=== PATIENT | female | born 1950 | race African-American/Black ===

== ENCOUNTER 2017-05-25 04:37 | Observation (INO) ==
[2017-05-25] MEDS ORDERED: SODIUM CHLORIDE 0.9% 1,000 ML IV STA (06:14)
[2017-05-25 06:42] LABS: Basophils % 0.6 % (0.0-0.8); Eosinophils # 0.1 10*3/uL (0.0-0.87); Eosinophils % 1.2 % (0.00-10.9); Hematocrit 32.1 VOL% (35.7-47.0); Hemoglobin 10.2 GM/DL (12.0-16.0); Immature Granulocytes % 0.3 %; Immature Granulocytes Absolute 0.02 #; Lymphocytes # 0.8 10*3/uL (1.4-4.0); Lymphocytes % 11.1 % (21.3-54.2); Mean Corpuscular HGB Conc 31.8 GM/DL (32-36); Mean Corpuscular Hemoglobin 26 PG (27-34); Mean Corpuscular Volume 83.2 FL (87-102); Mean Platelet Volume 9.9 FL (9.6-12.0); Monocytes # 0.5 10*3/uL (0.11-0.8); Monocytes % 7.7 % (1.7-12.7); Neutrophils # 5.3 10*3/uL (1.4-7.4); Neutrophils % 79.1 % (38.7-73.9); Platelet Count 255 T/CUMM (130-400); Red Blood Count 3.86 MC/CUMM (3.8-5.5); Red Cell Distribution Width 14.4 % (9.3-17.3); White Blood Count 6.8 T/CUMM (4-12)
[2017-05-25 07:05] LABS: Blood Urea Nitrogen 50 MG/DL (7-18); Calcium 9.8 MG/DL (8.5-10.1); Glucose 118 MG/DL (74-106); Osmolality,Calculated 286.8 MOS/KG (273-304); Potassium 4.7 MMOL/L (3.5-5.1); Sodium 137 MMOL/L (136-145); Troponin I Only < 0.015 NG/ML (0.00-0.045)
[2017-05-25] MEDS ORDERED: ENOXAPARIN 100 MG/ML SYRINGE SUBCUT SCH ×2 (08:30)
[2017-05-25] MEDS ORDERED: ENOXAPARIN 100 MG/ML SYRINGE SUBCUT ONE (08:39)
[2017-05-25 08:56] LABS: INR 0.9; PT Patient Result 9.9 SECS; Partial Thromboplastin Time 26.4 SECS (0-40)
[2017-05-25] MEDS ORDERED: cloNIDine 0.1 MG TABLET PO PRN (13:08)
[2017-05-25] MEDS ORDERED: amLODIPine 5 MG TABLET PO ONE (13:08)
[2017-05-26 07:48] VITALS: BP 154/67
== END 2017-05-26 11:18 | disposition home or self-care (01) ==
LOC: N.ED 04:37 → N.EDINP 04:37 → N.TELES 09:45
PROVIDERS: ADMIT Internal Medicine Interventional Cardiology; ATTEND Internal Medicine Interventional Cardiology

== ENCOUNTER 2017-12-11 22:07 | Observation (INO) ==
[2017-12-11] MEDS ORDERED: ASPIRIN 325 MG TABLET PO STA (23:38)
[2017-12-11] MEDS ORDERED: PANTOPRAZOLE 40 MG TABLET PO STA (23:38)
[2017-12-11] MEDS ORDERED: NITROGLYCERIN SL 0.4 MG TABLET SL STA (23:39)
[2017-12-11 23:44] LABS: Basophils # 0.1 10*3/uL (0.0-0.2); Basophils % 0.5 % (0.0-0.8); Eosinophils # 0.1 10*3/uL (0.0-0.87); Eosinophils % 1.1 % (0.00-10.9); Hematocrit 30.7 VOL% (35.7-47.0); Hemoglobin 9.5 GM/DL (12.0-16.0); Immature Granulocytes % 0.4 %; Immature Granulocytes Absolute 0.04 #; Lymphocytes % 10.1 % (21.3-54.2); Mean Corpuscular HGB Conc 30.9 GM/DL (32-36); Mean Corpuscular Hemoglobin 26 PG (27-34); Mean Corpuscular Volume 82.5 FL (87-102); Mean Platelet Volume 10.1 FL (9.6-12.0); Monocytes # 0.6 10*3/uL (0.11-0.8); Monocytes % 6.2 % (1.7-12.7); Neutrophils # 7.7 10*3/uL (1.4-7.4); Neutrophils % 81.7 % (38.7-73.9); Platelet Count 259 T/CUMM (130-400); Red Blood Count 3.72 MC/CUMM (3.8-5.5); White Blood Count 9.5 T/CUMM (4-12)
[2017-12-11 23:49] LABS: INR 0.9; PT Patient Result 9.4 SECS; Partial Thromboplastin Time 25.9 SECS (0-40)
[2017-12-11 23:57] LABS: Alanine Aminotransferase 19 U/L (13-56); Albumin 3.5 G/DL (3.4-5.0); Alkaline Phosphatase 123 U/L (45-117); Aspartate Amino Transferase 26 U/L (0-37); Bilirubin,Total < 0.39 MG/DL (0.2-1.0); Blood Urea Nitrogen 58 MG/DL (7-18); Calcium 9.4 MG/DL (8.5-10.1); Glucose 147 MG/DL (74-106); Osmolality,Calculated 293.7 MOS/KG (273-304); Potassium 5.2 MMOL/L (3.5-5.1); Sodium 138 MMOL/L (136-145); Total Protein 8.1 G/DL (6.4-8.3)
[2017-12-11 23:59] LABS: Amylase 101 U/L (25-115); Troponin I < 0.015 NG/ML (0.00-0.045)
[2017-12-12] MEDS ORDERED: ONDANSETRON 4 MG/2 ML VIAL IV PRN (02:11)
[2017-12-12] MEDS ORDERED: ACETAMINOPHEN 325 MG TABLET PO PRN (02:11)
[2017-12-12] MEDS ORDERED: NITROGLYCERIN SL 0.4 MG TABLET SL PRN (02:13)
[2017-12-12] MEDS ORDERED: GLUCAGON 1 MG VIAL IM PRN (02:14)
[2017-12-12] MEDS ORDERED: DEXTROSE 50% 25 GM/50 ML VIAL IV PRN (02:14)
[2017-12-12] MEDS ORDERED: MORPHINE 4 MG/1 ML VIAL IV PRN (02:16)
[2017-12-12 03:53] LABS: Calcium 9.2 MG/DL (8.5-10.1); Osmolality,Calculated 291.8 MOS/KG (273-304); Potassium 4.8 MMOL/L (3.5-5.1)
[2017-12-12] MEDS: SODIUM CHLORIDE 0.9% 1,000 ML IV SCH ×2 (03:56→23:31)
[2017-12-12 05:49] LABS: Basophils % 0.6 % (0.0-0.8); Eosinophils # 0.1 10*3/uL (0.0-0.87); Eosinophils % 0.7 % (0.00-10.9); Immature Granulocytes % 0.3 %; Immature Granulocytes Absolute 0.02 #; Lymphocytes % 13.5 % (21.3-54.2); Mean Corpuscular Hemoglobin 26 PG (27-34); Mean Corpuscular Volume 82.9 FL (87-102); Mean Platelet Volume 9.5 FL (9.6-12.0); Monocytes # 0.6 10*3/uL (0.11-0.8); Monocytes % 8.3 % (1.7-12.7); Neutrophils # 5.4 10*3/uL (1.4-7.4); Neutrophils % 76.6 % (38.7-73.9); Platelet Count 233 T/CUMM (130-400); White Blood Count 7.1 T/CUMM (4-12)
[2017-12-12 08:57] LABS: Troponin I < 0.015 NG/ML (0.00-0.045)
[2017-12-12] MEDS ORDERED: TRIAMTERENE/HCTZ 37.5-25 MG TABLET PO SCH (09:00)
[2017-12-12] MEDS ORDERED: METOPROLOL SUCCINATE XL 100 MG TABLET PO SCH (09:00)
[2017-12-12] MEDS ORDERED: NEBIVOLOL 10 MG TABLET PO SCH (09:00)
[2017-12-12] MEDS: INSULIN NPH 100 UNIT/ML SUBCUT SCH (09:21)
[2017-12-12] MEDS: GLIMEPIRIDE 4 MG TABLET PO SCH ×2 (09:21→20:45)
[2017-12-12] MEDS ORDERED: SIMETHICONE CHEW 80 MG TABLET PO PRN (09:21)
[2017-12-12] MEDS: INSULIN REGULAR 100 UNIT/ML SUBCUT SCH ×4 (09:21→20:47)
[2017-12-12] MEDS: CLOPIDOGREL 75 MG TABLET PO SCH (09:37)
[2017-12-12] MEDS: amLODIPine 10 MG TABLET PO SCH (09:37)
[2017-12-12] MEDS: PANTOPRAZOLE 40 MG TABLET PO SCH (09:37)
[2017-12-12] MEDS: TRIAMTERENE/HCTZ 37.5-25 MG CAPSULE PO SCH (09:37)
[2017-12-12] MEDS: NEBIVOLOL 10 MG TABLET PO SCH ×2 (09:38→20:45)
[2017-12-12] MEDS: ASPIRIN CHEW 81 MG TABLET PO SCH (09:38)
[2017-12-12] MEDS: ENOXAPARIN 30 MG/0.3 ML SYRINGE SUBCUT SCH (10:38)
[2017-12-12 12:10] LABS: Troponin I < 0.015 NG/ML (0.00-0.045)
[2017-12-12] MEDS: DOXAZOSIN 1 MG TABLET PO SCH (20:45)
[2017-12-12] MEDS ORDERED: ATORVASTATIN 40 MG TABLET PO SCH (21:00)
[2017-12-12] MEDS ORDERED: INSULIN NPH 100 UNIT/ML SUBCUT SCH (21:00)
[2017-12-13 02:37] LABS: Basophils % 0.9 % (0.0-0.8); Eosinophils # 0.1 10*3/uL (0.0-0.87); Eosinophils % 2.2 % (0.00-10.9); Hematocrit 27.2 VOL% (35.7-47.0); Hemoglobin 8.4 GM/DL (12.0-16.0); Immature Granulocytes % 0.2 %; Immature Granulocytes Absolute 0.01 #; Lymphocytes # 1.2 10*3/uL (1.4-4.0); Lymphocytes % 24.8 % (21.3-54.2); Mean Corpuscular HGB Conc 30.9 GM/DL (32-36); Mean Corpuscular Hemoglobin 26 PG (27-34); Mean Corpuscular Volume 83.2 FL (87-102); Mean Platelet Volume 9.8 FL (9.6-12.0); Monocytes # 0.6 10*3/uL (0.11-0.8); Monocytes % 12.1 % (1.7-12.7); Neutrophils # 2.8 10*3/uL (1.4-7.4); Neutrophils % 59.8 % (38.7-73.9); Platelet Count 219 T/CUMM (130-400); Red Blood Count 3.27 MC/CUMM (3.8-5.5); Red Cell Distribution Width 14.8 % (9.3-17.3); White Blood Count 4.6 T/CUMM (4-12)
[2017-12-13 02:40] LABS: Basophils % 0.9 % (0.0-0.8); Eosinophils # 0.1 10*3/uL (0.0-0.87); Eosinophils % 2.2 % (0.00-10.9); Hematocrit 27.3 VOL% (35.7-47.0); Hemoglobin 8.4 GM/DL (12.0-16.0); Immature Granulocytes % 0.2 %; Immature Granulocytes Absolute 0.01 #; Lymphocytes # 1.1 10*3/uL (1.4-4.0); Mean Corpuscular HGB Conc 30.8 GM/DL (32-36); Mean Corpuscular Hemoglobin 26 PG (27-34); Mean Corpuscular Volume 83.2 FL (87-102); Mean Platelet Volume 9.7 FL (9.6-12.0); Monocytes # 0.5 10*3/uL (0.11-0.8); Monocytes % 11.9 % (1.7-12.7); Neutrophils # 2.7 10*3/uL (1.4-7.4); Neutrophils % 59.8 % (38.7-73.9); Platelet Count 229 T/CUMM (130-400); Red Blood Count 3.28 MC/CUMM (3.8-5.5); Red Cell Distribution Width 14.9 % (9.3-17.3); White Blood Count 4.5 T/CUMM (4-12)
[2017-12-13 03:17] LABS: % Iron Saturation 16.4 % (18-50); Ferritin 31.7 ng/ml (8-252)
[2017-12-13 03:25] LABS: Calcium 9.2 MG/DL (8.5-10.1); Osmolality,Calculated 292.4 MOS/KG (273-304); Potassium 4.4 MMOL/L (3.5-5.1)
[2017-12-13 03:28] LABS: Folate 9.9 NG/ML (5.4-24.0); Risk Ratio 2.85; VLDL CHOLESTEROL 27.8 MG/DL; Vitamin B12 463 PG/ML (211-911)
[2017-12-13 08:01] LABS: Sedimentation Rate-Westergren 60 MM/HR (0-30)
[2017-12-13 08:07] VITALS: BP 152/73
[2017-12-13 08:52] LABS: Hemoglobin A1 (Alkaline) 97.5 % (96.5-98.5); Hemoglobin A2 (Alkaline) 2.5 % (1.5-3.5)
[2017-12-13] MEDS: INSULIN REGULAR 100 UNIT/ML SUBCUT SCH (09:20)
[2017-12-13] MEDS: INSULIN NPH 100 UNIT/ML SUBCUT SCH (09:44)
[2017-12-13] MEDS: NEBIVOLOL 10 MG TABLET PO SCH (09:44)
[2017-12-13] MEDS: PANTOPRAZOLE 40 MG TABLET PO SCH (09:45)
[2017-12-13] MEDS: TRIAMTERENE/HCTZ 37.5-25 MG CAPSULE PO SCH (09:45)
[2017-12-13] MEDS: ENOXAPARIN 30 MG/0.3 ML SYRINGE SUBCUT SCH (09:45)
[2017-12-13] MEDS: ASPIRIN CHEW 81 MG TABLET PO SCH (09:45)
[2017-12-13] MEDS: GLIMEPIRIDE 4 MG TABLET PO SCH (09:45)
[2017-12-13] MEDS: amLODIPine 10 MG TABLET PO SCH (09:45)
[2017-12-13] MEDS: CLOPIDOGREL 75 MG TABLET PO SCH (09:45)
[2017-12-13] MEDS: DOXAZOSIN 1 MG TABLET PO SCH (09:49)
[2017-12-13 11:56] LABS: Apearance,Urine CLEAR (Clear); Bilirubin,Urine Negative (Negative); Blood, Urine Negative (Negative); Glucose,Urine (UA) Negative (Negative); Ketones,Urine Negative (Negative); Nitrite,Urine Negative (Negative); Protein,Urine 100 MG/DL; RBC,Urine 3 /HPF (0-4); Squamous Epithelial Cell,Urine Occasional /HPF (0-10); Urine Color Straw (Yellow); Urine Urobilinogen < 2.0 EU/DL (0.2-1.0); WBC,Urine <1 /HPF (0-6)
[2017-12-14] MEDS ORDERED: cloNIDine 0.2 MG/24 HR PATCH TRANSDERM SCH (09:00)
== END 2017-12-13 11:40 | disposition home or self-care (01) ==
LOC: N.ED 22:07 → N.EDINP 12-12 02:11 → INTOOBSV 12-12 02:11 → N.TELEN 12-12 02:27
PROVIDERS: ADMIT Hospitalist; ATTEND Hospitalist

== ENCOUNTER 2019-02-14 15:27 | Observation (INO) ==
[2019-02-14] MEDS ORDERED: NITROGLYCERIN SL 0.4 MG TABLET SL PRN (16:03)
[2019-02-14 16:33] LABS: Basophils # 0.1 10*3/uL (0.0-0.2); Basophils % 0.7 % (0.0-0.8); Eosinophils % 0.5 % (0.00-10.9); Hematocrit 26.1 VOL% (35.7-47.0); Immature Granulocytes % 0.4 %; Immature Granulocytes Absolute 0.03 #; Lymphocytes # 0.7 10*3/uL (1.4-4.0); Lymphocytes % 8.6 % (21.3-54.2); Mean Corpuscular HGB Conc 30.7 GM/DL (32-36); Mean Corpuscular Volume 81.6 FL (87-102); Monocytes % 9.4 % (1.7-12.7); Neutrophils % 80.4 % (38.7-73.9); Platelet Count 281 T/CUMM (130-400); White Blood Count 8.3 T/CUMM (4-12)
[2019-02-14 16:44] LABS: INR 0.9; PT Patient Result 9.5 SECS (9.6-12.2)
[2019-02-14 17:01] LABS: Calcium 8.9 MG/DL (8.5-10.1); Osmolality,Calculated 293.7 MOS/KG (273-304)
[2019-02-14] MEDS ORDERED: DEXTROSE 50% 25 GM/50 ML VIAL IV PRN ×2 (18:35)
[2019-02-14] MEDS ORDERED: ACETAMINOPHEN 325 MG TABLET PO PRN (18:35)
[2019-02-14] MEDS ORDERED: GLUCAGON 1 MG VIAL IM PRN (18:35)
[2019-02-14] MEDS ORDERED: ONDANSETRON 4 MG/2 ML VIAL IV PRN (18:35)
[2019-02-14] MEDS ORDERED: SIMETHICONE CHEW 80 MG TABLET PO PRN (18:45)
[2019-02-14] MEDS ORDERED: traZODone 50 MG TABLET PO PRN (18:45)
[2019-02-14] MEDS ORDERED: traMADol 50 MG TABLET PO PRN (18:45)
[2019-02-14] MEDS ORDERED: cloNIDine 0.2 MG/24 HR PATCH TRANSDERM SCH (19:00)
[2019-02-14] MEDS ORDERED: ENOXAPARIN 120 MG/0.8 ML SYRINGE SUBCUT SCH (19:00)
[2019-02-14] MEDS ORDERED: ATORVASTATIN 40 MG TABLET PO SCH (21:00)
[2019-02-14] MEDS: SODIUM CHLORIDE 0.9% 1,000 ML IV SCH (22:33)
[2019-02-14] MEDS: NEBIVOLOL 10 MG TABLET PO SCH (22:35)
[2019-02-14] MEDS: DOXAZOSIN 1 MG TABLET PO SCH (22:35)
[2019-02-14] MEDS: INSULIN LISPRO 100 UNIT/ML SUBCUT SCH (22:36)
[2019-02-14 23:16] LABS: Troponin I < 0.015 NG/ML (0.00-0.045)
[2019-02-15 01:52] LABS: Troponin I < 0.015 NG/ML (0.00-0.045)
[2019-02-15 05:18] LABS: Calcium 8.9 MG/DL (8.5-10.1); Osmolality,Calculated 296.1 MOS/KG (273-304); Risk Ratio 2.33; Thyroid Stimulating Hormone 1.13 uIU/ml (0.358-3.74); VLDL CHOLESTEROL 19.4 MG/DL
[2019-02-15] MEDS ORDERED: LACTULOSE 20 GM/30 ML UDCUP PO PRN (08:43)
[2019-02-15] MEDS: INSULIN LISPRO 100 UNIT/ML SUBCUT SCH ×2 (08:45→13:17)
[2019-02-15] MEDS ORDERED: amLODIPine 10 MG TABLET PO SCH (09:00)
[2019-02-15] MEDS ORDERED: POLYETHYLENE GLYCOL POWDER 17 GM PACK PO SCH (09:00)
[2019-02-15] MEDS ORDERED: TRIAMTERENE/HCTZ 37.5-25 MG TABLET PO SCH (09:00)
[2019-02-15] MEDS ORDERED: PANTOPRAZOLE 40 MG TABLET PO SCH (09:00)
[2019-02-15] MEDS: NEBIVOLOL 10 MG TABLET PO SCH (09:40)
[2019-02-15] MEDS: DOXAZOSIN 1 MG TABLET PO SCH (09:40)
[2019-02-15] MEDS: SODIUM CHLORIDE 0.9% 1,000 ML IV SCH (10:38)
[2019-02-15 13:16] VITALS: BP 131/69
== END 2019-02-15 16:35 | disposition home or self-care (01) ==
LOC: N.EDINP 15:27 → N.ED 15:27 → N.EDINP 20:32 → N.2W 21:02
PROVIDERS: ADMIT Hospitalist; ATTEND Hospitalist

== ENCOUNTER 2019-07-24 08:03 | Observation (INO) ==
[2019-07-24] MEDS ORDERED: ONDANSETRON 4 MG/2 ML VIAL IV STA (08:46)
[2019-07-24] MEDS ORDERED: SODIUM CHLORIDE 0.9% 1,000 ML IV STA (08:46)
[2019-07-24 09:07] LABS: Basophils # 0.1 10*3/uL (0.0-0.2); Basophils % 0.7 % (0.0-0.8); Eosinophils % 0.5 % (0.00-10.9); Hematocrit 31.8 VOL% (35.7-47.0); Hemoglobin 9.9 GM/DL (12.0-16.0); Immature Granulocytes % 0.5 %; Immature Granulocytes Absolute 0.04 #; Lymphocytes # 0.6 10*3/uL (1.4-4.0); Lymphocytes % 7.6 % (21.3-54.2); Mean Corpuscular HGB Conc 31.1 GM/DL (32-36); Mean Corpuscular Volume 83.7 FL (87-102); Mean Platelet Volume 9.5 FL (9.6-12.0); Monocytes % 8.7 % (1.7-12.7); Platelet Count 276 T/CUMM (130-400); Red Cell Distribution Width 16.2 % (9.3-17.3); White Blood Count 8.1 T/CUMM (4-12)
[2019-07-24 09:32] LABS: Alanine Aminotransferase < 9 U/L (13-56); Albumin 2.9 G/DL (3.4-5.0); Alkaline Phosphatase 104 U/L (45-117); Apearance,Urine CLEAR (Clear); Aspartate Amino Transferase 16 U/L (0-37); Bacteria,Urine Occasional /HPF (Few); Bilirubin,Urine Negative (Negative); Blood Urea Nitrogen 64 MG/DL (7-18); Blood, Urine Negative (Negative); Calcium 9.4 MG/DL (8.5-10.1); Estimated Glom Filtration Rate 11 ML/MIN; Glucose 107 MG/DL (74-106); Glucose,Urine (UA) Negative (Negative); Ketones,Urine Negative (Negative); Mucus,Urine Occasional /LPF (Occasional); Nitrite,Urine Negative (Negative); Osmolality,Calculated 285.2 MOS/KG (273-304); Protein,Urine 100 MG/DL; RBC,Urine 6 /HPF (0-4); Squamous Epithelial Cell,Urine Occasional /HPF (0-10); Total Protein 7.7 G/DL (6.4-8.3); Urine Color Yellow (Yellow); Urine Specific Gravity 1.013 (1.001-1.035); Urine Urobilinogen < 2.0 EU/DL (0.2-1.0); WBC,Urine 1 /HPF (0-6)
[2019-07-24] MEDS ORDERED: ONDANSETRON 4 MG/2 ML VIAL IV PRN (10:44)
[2019-07-24] MEDS ORDERED: GLUCAGON 1 MG VIAL IM PRN (10:44)
[2019-07-24] MEDS ORDERED: DEXTROSE 50% 25 GM/50 ML VIAL IV PRN ×2 (10:44→10:59)
[2019-07-24] MEDS ORDERED: NITROGLYCERIN SL 0.4 MG TABLET SL PRN (11:07)
[2019-07-24] MEDS ORDERED: traMADol 50 MG TABLET PO PRN (11:07)
[2019-07-24] MEDS ORDERED: TRAZODONE 100 MG PO PRN (11:22)
[2019-07-24] MEDS ORDERED: FLUCONAZOLE 100 MG TABLET PO SCH (11:30)
[2019-07-24] MEDS ORDERED: DEXTROSE 10% 250 ML BAG IV PRN (11:43)
[2019-07-24] MEDS: CLOPIDOGREL 75 MG TABLET PO SCH (13:12)
[2019-07-24] MEDS: ASPIRIN CHEW 81 MG TABLET PO SCH (13:12)
[2019-07-24] MEDS: NEBIVOLOL 10 MG TABLET PO SCH (13:12)
[2019-07-24] MEDS: DOXAZOSIN 1 MG TABLET PO SCH ×2 (13:12→20:54)
[2019-07-24] MEDS: CLARITHROMYCIN 500 MG TABLET PO SCH (13:12)
[2019-07-24] MEDS: AMOXICILLIN 500 MG CAPSULE PO SCH (13:12)
[2019-07-24] MEDS: FERROUS GLUCONATE 324 MG TABLET PO SCH ×2 (13:12→20:56)
[2019-07-24] MEDS: amLODIPine 10 MG TABLET PO SCH (13:13)
[2019-07-24] MEDS: TRIAMTERENE/HCTZ 37.5-25 MG TABLET PO SCH (13:13)
[2019-07-24] MEDS: INSULIN LISPRO 100 UNIT/ML SUBCUT SCH ×3 (13:14→21:50)
[2019-07-24] MEDS ORDERED: traZODone 50 MG TABLET PO PRN (18:18)
[2019-07-24] MEDS ORDERED: ATORVASTATIN 40 MG TABLET PO SCH ×2 (21:00)
[2019-07-25] MEDS: NEBIVOLOL 10 MG TABLET PO SCH ×2 (01:20→09:45)
[2019-07-25 05:44] LABS: Basophils # 0.1 10*3/uL (0.0-0.2); Basophils % 0.7 % (0.0-0.8); Eosinophils # 0.1 10*3/uL (0.0-0.87); Hematocrit 28.9 VOL% (35.7-47.0); Immature Granulocytes % 0.3 %; Immature Granulocytes Absolute 0.02 #; Lymphocytes # 0.7 10*3/uL (1.4-4.0); Lymphocytes % 10.1 % (21.3-54.2); Mean Corpuscular HGB Conc 31.1 GM/DL (32-36); Mean Corpuscular Volume 82.3 FL (87-102); Mean Platelet Volume 9.6 FL (9.6-12.0); Monocytes % 12.7 % (1.7-12.7); Neutrophils % 75.2 % (38.7-73.9); Platelet Count 250 T/CUMM (130-400); Red Blood Count 3.51 MC/CUMM (3.8-5.5); Red Cell Distribution Width 16.3 % (9.3-17.3)
[2019-07-25 06:23] LABS: Alanine Aminotransferase < 6 U/L (13-56); Albumin 2.6 G/DL (3.4-5.0); Alkaline Phosphatase 86 U/L (45-117); Aspartate Amino Transferase 13 U/L (0-37); Blood Urea Nitrogen 61 MG/DL (7-18); Calcium 9.2 MG/DL (8.5-10.1); Estimated Glom Filtration Rate 12 ML/MIN; Glucose 103 MG/DL (74-106); Total Protein 7.4 G/DL (6.4-8.3)
[2019-07-25] MEDS: INSULIN LISPRO 100 UNIT/ML SUBCUT SCH ×3 (08:30→16:59)
[2019-07-25] MEDS ORDERED: LACTULOSE 20 GM/30 ML UDCUP PO SCH (09:00)
[2019-07-25] MEDS ORDERED: PANTOPRAZOLE 40 MG TABLET PO SCH (09:00)
[2019-07-25] MEDS ORDERED: LINACLOTIDE 145 MCG CAPSULE PO SCH (09:00)
[2019-07-25] MEDS: AMOXICILLIN 500 MG CAPSULE PO SCH (09:43)
[2019-07-25] MEDS: ASPIRIN CHEW 81 MG TABLET PO SCH (09:44)
[2019-07-25] MEDS: CLARITHROMYCIN 500 MG TABLET PO SCH (09:44)
[2019-07-25] MEDS: TRIAMTERENE/HCTZ 37.5-25 MG TABLET PO SCH (09:46)
[2019-07-25] MEDS: FERROUS GLUCONATE 324 MG TABLET PO SCH (09:46)
[2019-07-25] MEDS: DOXAZOSIN 1 MG TABLET PO SCH (09:46)
[2019-07-25] MEDS: amLODIPine 10 MG TABLET PO SCH (09:47)
[2019-07-25] MEDS: CLOPIDOGREL 75 MG TABLET PO SCH (09:47)
[2019-07-25] MEDS ORDERED: cloNIDine 0.2 MG/24 HR PATCH TRANSDERM SCH (11:07)
[2019-07-25] MEDS ORDERED: ZALEPLON 5 MG CAPSULE PO PRN (13:56)
[2019-07-25 16:11] VITALS: BP 132/54
== END 2019-07-25 17:24 | disposition home or self-care (01) ==
LOC: N.ED 08:03 → INTOOBSV 10:27 → N.EDINP 10:27 → N.3E 11:16
PROVIDERS: ADMIT Internal Medicine; ATTEND Internal Medicine

== ENCOUNTER 2019-08-11 04:35 | Inpatient (IN) ==
[2019-08-11 06:21] LABS: Basophils # 0.1 10*3/uL (0.0-0.2); Basophils % 0.6 % (0.0-0.8); Eosinophils % 0.1 % (0.00-10.9); Hemoglobin 9.2 GM/DL (12.0-16.0); Immature Granulocytes % 0.4 %; Immature Granulocytes Absolute 0.03 #; Lymphocytes # 0.6 10*3/uL (1.4-4.0); Lymphocytes % 6.9 % (21.3-54.2); Mean Corpuscular HGB Conc 30.7 GM/DL (32-36); Mean Platelet Volume 9.5 FL (9.6-12.0); Platelet Count 274 T/CUMM (130-400); Red Blood Count 3.66 MC/CUMM (3.8-5.5); Red Cell Distribution Width 15.4 % (9.3-17.3); White Blood Count 8.4 T/CUMM (4-12)
[2019-08-11] MEDS ORDERED: ONDANSETRON 4 MG/2 ML VIAL IV STA (06:21)
[2019-08-11] MEDS ORDERED: HYDROmorphone 2 MG/1 ML VIAL IV STA ×2 (06:21)
[2019-08-11 06:28] LABS: Apearance,Urine CLEAR (Clear); Bilirubin,Urine Negative (Negative); Blood, Urine Negative (Negative); Glucose,Urine (UA) 50 mg/dL (Negative); Ketones,Urine Negative (Negative); Mucus,Urine Occasional /LPF (Occasional); Nitrite,Urine Negative (Negative); Protein,Urine >=500 MG/DL; RBC,Urine 5 /HPF (0-4); Squamous Epithelial Cell,Urine Occasional /HPF (0-10); Urine Color Yellow (Yellow); Urine Specific Gravity 1.011 (1.001-1.035); Urine Urobilinogen < 2.0 EU/DL (0.2-1.0); WBC,Urine <1 /HPF (0-6)
[2019-08-11 06:39] LABS: Albumin 3.1 G/DL (3.4-5.0); Bilirubin,Total 0.4 MG/DL (0.2-1.0); Calcium 9.5 MG/DL (8.5-10.1); Osmolality,Calculated 292.8 MOS/KG (273-304); Total Protein 7.6 G/DL (6.4-8.3)
[2019-08-11] MEDS ORDERED: DEXTROSE 10% 250 ML BAG IV PRN (09:51)
[2019-08-11] MEDS ORDERED: DOCUSATE SODIUM 100 MG CAPSULE PO PRN (09:51)
[2019-08-11] MEDS ORDERED: ACETAMINOPHEN 325 MG TABLET PO PRN (09:51)
[2019-08-11] MEDS ORDERED: GLUCAGON 1 MG VIAL IM PRN (09:51)
[2019-08-11] MEDS ORDERED: LACTULOSE 20 GM/30 ML UDCUP PO PRN (09:51)
[2019-08-11] MEDS: INSULIN LISPRO 100 UNIT/ML SUBCUT SCH ×3 (13:15→21:58)
[2019-08-11] MEDS: ENOXAPARIN 30 MG/0.3 ML SYRINGE SUBCUT SCH (13:30)
[2019-08-11] MEDS: SODIUM CHLORIDE 0.9% 1,000 ML IV SCH ×2 (14:36→22:29)
[2019-08-11] MEDS ORDERED: NITROGLYCERIN SL 0.4 MG TABLET SL PRN (21:07)
[2019-08-11] MEDS ORDERED: GABAPENTIN 100 MG CAPSULE PO PRN (21:07)
[2019-08-11] MEDS: INSULIN NPH 100 UNIT/ML SUBCUT SCH (21:58)
[2019-08-11] MEDS: NEBIVOLOL 10 MG TABLET PO SCH (22:09)
[2019-08-11] MEDS: DOXAZOSIN 1 MG TABLET PO SCH (22:09)
[2019-08-11] MEDS: ZALEPLON 5 MG CAPSULE PO PRN (22:10)
[2019-08-11] MEDS: FERROUS GLUCONATE 324 MG TABLET PO SCH (22:10)
[2019-08-12] MEDS: ONDANSETRON 4 MG/2 ML VIAL IV PRN ×2 (05:05→21:00)
[2019-08-12] MEDS: traMADol 50 MG TABLET PO PRN ×2 (05:08→21:06)
[2019-08-12 05:55] LABS: Basophils # 0.1 10*3/uL (0.0-0.2); Basophils % 0.7 % (0.0-0.8); Eosinophils # 0.1 10*3/uL (0.0-0.87); Eosinophils % 1.1 % (0.00-10.9); Hematocrit 29.2 VOL% (35.7-47.0); Hemoglobin 8.5 GM/DL (12.0-16.0); Immature Granulocytes % 0.4 %; Immature Granulocytes Absolute 0.03 #; Lymphocytes # 1.2 10*3/uL (1.4-4.0); Mean Corpuscular HGB Conc 29.1 GM/DL (32-36); Mean Corpuscular Volume 86.4 FL (87-102); Mean Platelet Volume 9.6 FL (9.6-12.0); Monocytes % 12.3 % (1.7-12.7); Neutrophils % 69.5 % (38.7-73.9); Platelet Count 264 T/CUMM (130-400); Red Blood Count 3.38 MC/CUMM (3.8-5.5); Red Cell Distribution Width 15.6 % (9.3-17.3); White Blood Count 7.4 T/CUMM (4-12)
[2019-08-12 06:42] LABS: Albumin 2.7 G/DL (3.4-5.0); Bilirubin,Total 0.7 MG/DL (0.2-1.0); Calcium 9.4 MG/DL (8.5-10.1); Osmolality,Calculated 289.7 MOS/KG (273-304); Risk Ratio 2.56; Thyroid Stimulating Hormone 1.44 uIU/ml (0.358-3.74); Total Protein 7.9 G/DL (6.4-8.3); VLDL CHOLESTEROL 26.8 MG/DL
[2019-08-12 08:00] LABS: PT Patient Result 10.4 SECS (9.8-11.9)
[2019-08-12] MEDS: INSULIN LISPRO 100 UNIT/ML SUBCUT SCH ×4 (08:11→22:30)
[2019-08-12] MEDS: INSULIN NPH 100 UNIT/ML SUBCUT SCH ×2 (08:11→22:30)
[2019-08-12] MEDS ORDERED: amLODIPine 10 MG TABLET PO SCH (09:00)
[2019-08-12] MEDS ORDERED: NON-FORMULARY MEDICATION (Esomeprazole Magnesium [Nexium] 40 MG) PO SCH (09:00)
[2019-08-12] MEDS: DOXAZOSIN 1 MG TABLET PO SCH ×2 (09:13→21:56)
[2019-08-12] MEDS: PANTOPRAZOLE 40 MG TABLET PO SCH (09:13)
[2019-08-12] MEDS: GLIMEPIRIDE 4 MG TABLET PO SCH ×2 (09:13→15:59)
[2019-08-12] MEDS: FERROUS GLUCONATE 324 MG TABLET PO SCH ×2 (09:13→21:56)
[2019-08-12] MEDS: NEBIVOLOL 10 MG TABLET PO SCH ×2 (09:13→21:56)
[2019-08-12] MEDS: ENOXAPARIN 30 MG/0.3 ML SYRINGE SUBCUT SCH (11:36)
[2019-08-12] MEDS: hydrALAZINE 20 MG/1 ML VIAL IV PRN (14:40)
[2019-08-12] MEDS: SODIUM CHLORIDE 0.9% 1,000 ML IV SCH ×3 (14:45→23:52)
[2019-08-12] MEDS: BISMUTH SUBSALICYLATE 30 ML/524 MG 240 ML/BOTTLE PO SCH ×3 (18:32→22:30)
[2019-08-12] MEDS: AMOXICILLIN 500 MG CAPSULE PO SCH (21:57)
[2019-08-12] MEDS: ZALEPLON 5 MG CAPSULE PO PRN (21:59)
[2019-08-12] MEDS: RIFABUTIN 150 MG CAPSULE PO SCH (22:19)
[2019-08-13] MEDS: ONDANSETRON 4 MG/2 ML VIAL IV PRN (04:55)
[2019-08-13 05:21] LABS: Basophils % 0.6 % (0.0-0.8); Eosinophils # 0.1 10*3/uL (0.0-0.87); Eosinophils % 1.2 % (0.00-10.9); Hemoglobin 8.3 GM/DL (12.0-16.0); Immature Granulocytes % 0.3 %; Immature Granulocytes Absolute 0.02 #; Lymphocytes # 0.8 10*3/uL (1.4-4.0); Mean Corpuscular HGB Conc 30.7 GM/DL (32-36); Mean Corpuscular Volume 83.9 FL (87-102); Mean Platelet Volume 8.9 FL (9.6-12.0); Neutrophils % 74.9 % (38.7-73.9); Platelet Count 226 T/CUMM (130-400); Red Blood Count 3.22 MC/CUMM (3.8-5.5); Red Cell Distribution Width 15.3 % (9.3-17.3); White Blood Count 6.9 T/CUMM (4-12)
[2019-08-13 05:52] LABS: Alanine Aminotransferase < 9 U/L (13-56); Albumin 2.5 G/DL (3.4-5.0); Alkaline Phosphatase 96 U/L (45-117); Aspartate Amino Transferase 13 U/L (0-37); Blood Urea Nitrogen 46 MG/DL (7-18); Calcium 9.3 MG/DL (8.5-10.1); Estimated Glom Filtration Rate 13 ML/MIN; Glucose 88 MG/DL (74-106); Osmolality,Calculated 285.7 MOS/KG (273-304); Total Protein 7.5 G/DL (6.4-8.3)
[2019-08-13] MEDS: BISMUTH SUBSALICYLATE 30 ML/524 MG 240 ML/BOTTLE PO SCH ×4 (06:47→22:36)
[2019-08-13] MEDS: traMADol 50 MG TABLET PO PRN (07:04)
[2019-08-13] MEDS: SODIUM CHLORIDE 0.9% 1,000 ML IV SCH ×2 (07:05→17:48)
[2019-08-13] MEDS: INSULIN LISPRO 100 UNIT/ML SUBCUT SCH ×4 (08:50→22:34)
[2019-08-13] MEDS: INSULIN NPH 100 UNIT/ML SUBCUT SCH ×2 (08:50→22:35)
[2019-08-13] MEDS: amLODIPine 5 MG TABLET PO SCH (08:56)
[2019-08-13] MEDS: FERROUS GLUCONATE 324 MG TABLET PO SCH ×2 (08:56→21:59)
[2019-08-13] MEDS: NEBIVOLOL 10 MG TABLET PO SCH ×2 (08:56→21:59)
[2019-08-13] MEDS: PANTOPRAZOLE 40 MG TABLET PO SCH ×2 (08:57→21:59)
[2019-08-13] MEDS: AMOXICILLIN 500 MG CAPSULE PO SCH ×2 (08:57→21:59)
[2019-08-13] MEDS: DOXAZOSIN 1 MG TABLET PO SCH ×2 (08:57→21:59)
[2019-08-13] MEDS: GLIMEPIRIDE 4 MG TABLET PO SCH ×2 (08:57→17:47)
[2019-08-13] MEDS: RIFABUTIN 150 MG CAPSULE PO SCH ×2 (08:58→22:36)
[2019-08-13] MEDS: ENOXAPARIN 30 MG/0.3 ML SYRINGE SUBCUT SCH (11:20)
[2019-08-13] MEDS: POLYETHYLENE GLYCOL POWDER 17 GM PACK PO SCH ×2 (14:52→22:01)
[2019-08-13] MEDS: ZALEPLON 5 MG CAPSULE PO PRN (21:59)
[2019-08-14] MEDS: ONDANSETRON 4 MG/2 ML VIAL IV PRN ×3 (04:33→15:38)
[2019-08-14] MEDS: traMADol 50 MG TABLET PO PRN (04:36)
[2019-08-14 05:47] LABS: Basophils # 0.1 10*3/uL (0.0-0.2); Basophils % 0.7 % (0.0-0.8); Eosinophils # 0.1 10*3/uL (0.0-0.87); Eosinophils % 0.9 % (0.00-10.9); Hematocrit 26.9 VOL% (35.7-47.0); Hemoglobin 8.2 GM/DL (12.0-16.0); Immature Granulocytes % 0.1 %; Immature Granulocytes Absolute 0.01 #; Lymphocytes # 0.6 10*3/uL (1.4-4.0); Lymphocytes % 8.5 % (21.3-54.2); Mean Corpuscular HGB Conc 30.5 GM/DL (32-36); Mean Corpuscular Volume 85.7 FL (87-102); Mean Platelet Volume 9.5 FL (9.6-12.0); Monocytes % 11.7 % (1.7-12.7); Neutrophils % 78.1 % (38.7-73.9); Platelet Count 218 T/CUMM (130-400); Red Blood Count 3.14 MC/CUMM (3.8-5.5); Red Cell Distribution Width 15.1 % (9.3-17.3); White Blood Count 6.9 T/CUMM (4-12)
[2019-08-14 06:30] LABS: Alanine Aminotransferase < 6 U/L (13-56); Albumin 2.4 G/DL (3.4-5.0); Alkaline Phosphatase 89 U/L (45-117); Aspartate Amino Transferase 14 U/L (0-37); Blood Urea Nitrogen 41 MG/DL (7-18); Calcium 9.3 MG/DL (8.5-10.1); Estimated Glom Filtration Rate 15 ML/MIN; Glucose 97 MG/DL (74-106); Osmolality,Calculated 286.5 MOS/KG (273-304)
[2019-08-14] MEDS: BISMUTH SUBSALICYLATE 30 ML/524 MG 240 ML/BOTTLE PO SCH ×3 (06:52→17:16)
[2019-08-14] MEDS ORDERED: METHYLNALTREXONE 12 MG/0.6 ML VIAL SUBCUT ONE (08:29)
[2019-08-14] MEDS ORDERED: SENNA 8.6 MG TABLET PO SCH (09:00)
[2019-08-14] MEDS: POLYETHYLENE GLYCOL POWDER 17 GM PACK PO SCH ×3 (09:20→21:16)
[2019-08-14] MEDS: amLODIPine 5 MG TABLET PO SCH (09:20)
[2019-08-14] MEDS: INSULIN LISPRO 100 UNIT/ML SUBCUT SCH ×4 (09:20→21:11)
[2019-08-14] MEDS: GLIMEPIRIDE 4 MG TABLET PO SCH ×2 (09:20→17:16)
[2019-08-14] MEDS: MORPHINE 4 MG/1 ML VIAL IV PRN ×2 (09:20→14:05)
[2019-08-14] MEDS: FERROUS GLUCONATE 324 MG TABLET PO SCH ×2 (09:20→21:11)
[2019-08-14] MEDS: NEBIVOLOL 10 MG TABLET PO SCH ×2 (09:20→21:11)
[2019-08-14] MEDS: PANTOPRAZOLE 40 MG TABLET PO SCH ×2 (09:20→21:11)
[2019-08-14] MEDS: AMOXICILLIN 500 MG CAPSULE PO SCH ×2 (09:20→21:10)
[2019-08-14] MEDS: DOXAZOSIN 1 MG TABLET PO SCH ×2 (09:20→21:11)
[2019-08-14] MEDS: INSULIN NPH 100 UNIT/ML SUBCUT SCH ×2 (09:20→21:12)
[2019-08-14] MEDS: RIFABUTIN 150 MG CAPSULE PO SCH ×2 (10:03→21:20)
[2019-08-14] MEDS: ENOXAPARIN 30 MG/0.3 ML SYRINGE SUBCUT SCH (10:07)
[2019-08-14] MEDS: SODIUM CHLORIDE 0.9% 1,000 ML IV SCH (14:05)
[2019-08-14] MEDS: DOCUSATE/SENNA 50-8.6 MG TABLET PO SCH (21:10)
[2019-08-14] MEDS: ZALEPLON 5 MG CAPSULE PO PRN (21:16)
[2019-08-15] MEDS: SODIUM CHLORIDE 0.9% 1,000 ML IV SCH ×3 (00:16→22:30)
[2019-08-15] MEDS: BISMUTH SUBSALICYLATE 30 ML/524 MG 240 ML/BOTTLE PO SCH ×5 (00:17→16:48)
[2019-08-15] MEDS: hydrALAZINE 20 MG/1 ML VIAL IV PRN (03:58)
[2019-08-15] MEDS: MORPHINE 4 MG/1 ML VIAL IV PRN ×2 (05:05→15:02)
[2019-08-15] MEDS: ONDANSETRON 4 MG/2 ML VIAL IV PRN ×2 (05:07→14:58)
[2019-08-15 06:20] LABS: Basophils # 0.1 10*3/uL (0.0-0.2); Basophils % 0.8 % (0.0-0.8); Eosinophils # 0.1 10*3/uL (0.0-0.87); Eosinophils % 0.8 % (0.00-10.9); Hemoglobin 8.2 GM/DL (12.0-16.0); Immature Granulocytes % 0.6 %; Immature Granulocytes Absolute 0.04 #; Lymphocytes # 0.6 10*3/uL (1.4-4.0); Lymphocytes % 8.1 % (21.3-54.2); Mean Corpuscular HGB Conc 30.4 GM/DL (32-36); Mean Corpuscular Volume 84.6 FL (87-102); Mean Platelet Volume 9.2 FL (9.6-12.0); Monocytes % 11.4 % (1.7-12.7); Neutrophils % 78.3 % (38.7-73.9); Platelet Count 220 T/CUMM (130-400); Red Blood Count 3.19 MC/CUMM (3.8-5.5); Red Cell Distribution Width 15.3 % (9.3-17.3); White Blood Count 7.1 T/CUMM (4-12)
[2019-08-15 06:44] LABS: Alanine Aminotransferase 9 U/L (13-56); Albumin 2.4 G/DL (3.4-5.0); Alkaline Phosphatase 86 U/L (45-117); Aspartate Amino Transferase 16 U/L (0-37); Bilirubin,Total < 0.39 MG/DL (0.2-1.0); Blood Urea Nitrogen 37 MG/DL (7-18); Calcium 9.3 MG/DL (8.5-10.1); Estimated Glom Filtration Rate 16 ML/MIN; Glucose 86 MG/DL (74-106); Osmolality,Calculated 286.4 MOS/KG (273-304); Total Protein 7.1 G/DL (6.4-8.3)
[2019-08-15] MEDS: INSULIN NPH 100 UNIT/ML SUBCUT SCH ×2 (08:13→21:26)
[2019-08-15] MEDS: INSULIN LISPRO 100 UNIT/ML SUBCUT SCH ×4 (08:13→21:26)
[2019-08-15] MEDS: GLIMEPIRIDE 4 MG TABLET PO SCH ×2 (08:46→16:48)
[2019-08-15] MEDS: NEBIVOLOL 10 MG TABLET PO SCH ×2 (08:46→21:19)
[2019-08-15] MEDS: AMOXICILLIN 500 MG CAPSULE PO SCH ×2 (08:46→21:19)
[2019-08-15] MEDS: POLYETHYLENE GLYCOL POWDER 17 GM PACK PO SCH ×3 (08:46→21:26)
[2019-08-15] MEDS: PANTOPRAZOLE 40 MG TABLET PO SCH ×2 (08:46→21:18)
[2019-08-15] MEDS: amLODIPine 5 MG TABLET PO SCH (08:46)
[2019-08-15] MEDS: DOCUSATE/SENNA 50-8.6 MG TABLET PO SCH ×2 (08:46→21:19)
[2019-08-15] MEDS: DOXAZOSIN 1 MG TABLET PO SCH ×2 (08:46→21:19)
[2019-08-15] MEDS: FERROUS GLUCONATE 324 MG TABLET PO SCH ×2 (08:46→21:25)
[2019-08-15] MEDS: RIFABUTIN 150 MG CAPSULE PO SCH ×2 (08:56→21:27)
[2019-08-15] MEDS ORDERED: cloNIDine 0.2 MG/24 HR PATCH TRANSDERM SCH (09:00)
[2019-08-15] MEDS: ENOXAPARIN 30 MG/0.3 ML SYRINGE SUBCUT SCH (10:05)
[2019-08-16] MEDS: hydrALAZINE 20 MG/1 ML VIAL IV PRN (00:03)
[2019-08-16] MEDS: ZALEPLON 5 MG CAPSULE PO PRN (00:08)
[2019-08-16] MEDS: SODIUM CHLORIDE 0.9% 1,000 ML IV SCH ×2 (00:58→00:59)
[2019-08-16] MEDS: BISMUTH SUBSALICYLATE 30 ML/524 MG 240 ML/BOTTLE PO SCH ×5 (01:00→23:30)
[2019-08-16] MEDS: MORPHINE 4 MG/1 ML VIAL IV PRN (01:12)
[2019-08-16 05:40] LABS: Basophils % 0.7 % (0.0-0.8); Eosinophils # 0.1 10*3/uL (0.0-0.87); Eosinophils % 1.2 % (0.00-10.9); Hematocrit 25.1 VOL% (35.7-47.0); Hemoglobin 7.6 GM/DL (12.0-16.0); Immature Granulocytes % 0.3 %; Immature Granulocytes Absolute 0.02 #; Lymphocytes # 0.7 10*3/uL (1.4-4.0); Lymphocytes % 11.7 % (21.3-54.2); Mean Corpuscular HGB Conc 30.3 GM/DL (32-36); Mean Corpuscular Volume 83.4 FL (87-102); Mean Platelet Volume 9.4 FL (9.6-12.0); Monocytes % 12.9 % (1.7-12.7); Neutrophils % 73.2 % (38.7-73.9); Platelet Count 207 T/CUMM (130-400); Red Blood Count 3.01 MC/CUMM (3.8-5.5); Red Cell Distribution Width 15.2 % (9.3-17.3); White Blood Count 6.1 T/CUMM (4-12)
[2019-08-16 06:15] LABS: Alanine Aminotransferase < 6 U/L (13-56); Albumin 2.3 G/DL (3.4-5.0); Alkaline Phosphatase 76 U/L (45-117); Aspartate Amino Transferase 15 U/L (0-37); Bilirubin,Total < 0.39 MG/DL (0.2-1.0); Blood Urea Nitrogen 31 MG/DL (7-18); Calcium 9.2 MG/DL (8.5-10.1); Estimated Glom Filtration Rate 17 ML/MIN; Glucose 88 MG/DL (74-106); Osmolality,Calculated 286.3 MOS/KG (273-304); Total Protein 6.7 G/DL (6.4-8.3)
[2019-08-16] MEDS: ONDANSETRON 4 MG/2 ML VIAL IV PRN (07:39)
[2019-08-16] MEDS: INSULIN NPH 100 UNIT/ML SUBCUT SCH ×2 (09:12→20:08)
[2019-08-16] MEDS: INSULIN LISPRO 100 UNIT/ML SUBCUT SCH ×4 (09:12→20:08)
[2019-08-16] MEDS ORDERED: amLODIPine 10 MG TABLET PO SCH (09:15)
[2019-08-16] MEDS: NEBIVOLOL 10 MG TABLET PO SCH ×2 (09:24→20:01)
[2019-08-16] MEDS: DOCUSATE/SENNA 50-8.6 MG TABLET PO SCH ×2 (09:24→20:02)
[2019-08-16] MEDS: PANTOPRAZOLE 40 MG TABLET PO SCH ×2 (09:24→20:02)
[2019-08-16] MEDS: AMOXICILLIN 500 MG CAPSULE PO SCH ×2 (09:25→20:04)
[2019-08-16] MEDS: FERROUS GLUCONATE 324 MG TABLET PO SCH ×2 (09:25→20:04)
[2019-08-16] MEDS: DOXAZOSIN 1 MG TABLET PO SCH ×2 (09:27→20:02)
[2019-08-16] MEDS: RIFABUTIN 150 MG CAPSULE PO SCH ×2 (09:27→20:08)
[2019-08-16] MEDS: POLYETHYLENE GLYCOL POWDER 17 GM PACK PO SCH ×3 (09:27→20:08)
[2019-08-16] MEDS: ENOXAPARIN 30 MG/0.3 ML SYRINGE SUBCUT SCH (09:29)
[2019-08-16] MEDS: GLIMEPIRIDE 4 MG TABLET PO SCH ×2 (09:42→17:00)
[2019-08-16] MEDS: amLODIPine 5 MG TABLET PO SCH (09:43)
[2019-08-17] MEDS: hydrALAZINE 20 MG/1 ML VIAL IV PRN (04:23)
[2019-08-17] MEDS: BISMUTH SUBSALICYLATE 30 ML/524 MG 240 ML/BOTTLE PO SCH ×4 (05:30→23:08)
[2019-08-17 06:11] LABS: Basophils % 0.6 % (0.0-0.8); Eosinophils # 0.1 10*3/uL (0.0-0.87); Eosinophils % 0.9 % (0.00-10.9); Hemoglobin 8.1 GM/DL (12.0-16.0); Immature Granulocytes % 0.3 %; Immature Granulocytes Absolute 0.02 #; Lymphocytes # 0.7 10*3/uL (1.4-4.0); Lymphocytes % 10.2 % (21.3-54.2); Mean Corpuscular HGB Conc 31.2 GM/DL (32-36); Mean Corpuscular Volume 83.1 FL (87-102); Mean Platelet Volume 9.3 FL (9.6-12.0); Monocytes % 12.1 % (1.7-12.7); Neutrophils % 75.9 % (38.7-73.9); Platelet Count 216 T/CUMM (130-400); Red Blood Count 3.13 MC/CUMM (3.8-5.5); Red Cell Distribution Width 15.5 % (9.3-17.3); White Blood Count 6.6 T/CUMM (4-12)
[2019-08-17 06:50] LABS: Alanine Aminotransferase < 9 U/L (13-56); Albumin 2.5 G/DL (3.4-5.0); Alkaline Phosphatase 84 U/L (45-117); Aspartate Amino Transferase 24 U/L (0-37); Blood Urea Nitrogen 27 MG/DL (7-18); Calcium 9.5 MG/DL (8.5-10.1); Estimated Glom Filtration Rate 17 ML/MIN; Glucose 63 MG/DL (74-106); Osmolality,Calculated 281.4 MOS/KG (273-304); Total Protein 7.1 G/DL (6.4-8.3)
[2019-08-17] MEDS: INSULIN LISPRO 100 UNIT/ML SUBCUT SCH ×4 (07:53→21:37)
[2019-08-17] MEDS: INSULIN NPH 100 UNIT/ML SUBCUT SCH ×2 (07:54→21:08)
[2019-08-17] MEDS: DOXAZOSIN 1 MG TABLET PO SCH ×2 (08:18→20:45)
[2019-08-17] MEDS: NEBIVOLOL 10 MG TABLET PO SCH ×2 (08:18→20:45)
[2019-08-17] MEDS: POLYETHYLENE GLYCOL POWDER 17 GM PACK PO SCH ×3 (08:28→20:45)
[2019-08-17] MEDS: RIFABUTIN 150 MG CAPSULE PO SCH ×2 (08:28→21:12)
[2019-08-17] MEDS: GLIMEPIRIDE 4 MG TABLET PO SCH ×2 (08:28→17:50)
[2019-08-17] MEDS: ONDANSETRON 4 MG/2 ML VIAL IV PRN (09:28)
[2019-08-17] MEDS: MORPHINE 4 MG/1 ML VIAL IV PRN ×2 (10:40→20:43)
[2019-08-17] MEDS: DOCUSATE/SENNA 50-8.6 MG TABLET PO SCH ×2 (11:20→20:46)
[2019-08-17] MEDS: AMOXICILLIN 500 MG CAPSULE PO SCH ×2 (11:20→21:06)
[2019-08-17] MEDS: PANTOPRAZOLE 40 MG TABLET PO SCH ×2 (11:20→20:46)
[2019-08-17] MEDS: FERROUS GLUCONATE 324 MG TABLET PO SCH ×2 (11:20→21:08)
[2019-08-17] MEDS ORDERED: DIAZEPAM 5 MG TABLET PO ONE (12:15)
[2019-08-17] MEDS ORDERED: SODIUM CHLORIDE 0.45% 1,000 ML IV SCH (12:30)
[2019-08-18] MEDS: MORPHINE 4 MG/1 ML VIAL IV PRN ×2 (01:10→04:10)
[2019-08-18] MEDS: ONDANSETRON 4 MG/2 ML VIAL IV PRN (02:44)
[2019-08-18 04:48] LABS: Basophils % 0.5 % (0.0-0.8); Eosinophils # 0.1 10*3/uL (0.0-0.87); Eosinophils % 1.1 % (0.00-10.9); Hematocrit 24.5 VOL% (35.7-47.0); Hemoglobin 7.7 GM/DL (12.0-16.0); Immature Granulocytes % 0.5 %; Immature Granulocytes Absolute 0.03 #; Lymphocytes # 0.6 10*3/uL (1.4-4.0); Lymphocytes % 9.9 % (21.3-54.2); Mean Corpuscular HGB Conc 31.4 GM/DL (32-36); Mean Corpuscular Volume 82.5 FL (87-102); Mean Platelet Volume 9.7 FL (9.6-12.0); Monocytes % 11.6 % (1.7-12.7); Neutrophils % 76.4 % (38.7-73.9); Platelet Count 213 T/CUMM (130-400); Red Blood Count 2.97 MC/CUMM (3.8-5.5); Red Cell Distribution Width 15.4 % (9.3-17.3); White Blood Count 6.5 T/CUMM (4-12)
[2019-08-18 05:06] LABS: Calcium 9.3 MG/DL (8.5-10.1); Osmolality,Calculated 280.8 MOS/KG (273-304)
[2019-08-18] MEDS: BISMUTH SUBSALICYLATE 30 ML/524 MG 240 ML/BOTTLE PO SCH (06:49)
[2019-08-18] MEDS: INSULIN LISPRO 100 UNIT/ML SUBCUT SCH (07:56)
[2019-08-18] MEDS: INSULIN NPH 100 UNIT/ML SUBCUT SCH (07:56)
[2019-08-18 08:02] VITALS: BP 160/74
[2019-08-18] MEDS: AMOXICILLIN 500 MG CAPSULE PO SCH (08:50)
[2019-08-18] MEDS: FERROUS GLUCONATE 324 MG TABLET PO SCH (08:50)
[2019-08-18] MEDS: DOXAZOSIN 1 MG TABLET PO SCH (08:50)
[2019-08-18] MEDS: DOCUSATE/SENNA 50-8.6 MG TABLET PO SCH (08:51)
[2019-08-18] MEDS: POLYETHYLENE GLYCOL POWDER 17 GM PACK PO SCH (08:51)
[2019-08-18] MEDS: NEBIVOLOL 10 MG TABLET PO SCH (08:51)
[2019-08-18] MEDS: traMADol 50 MG TABLET PO PRN (08:51)
[2019-08-18] MEDS: GLIMEPIRIDE 4 MG TABLET PO SCH (08:51)
[2019-08-18] MEDS: RIFABUTIN 150 MG CAPSULE PO SCH (08:54)
[2019-08-18] MEDS: PANTOPRAZOLE 40 MG TABLET PO SCH (08:55)
== END 2019-08-18 11:42 | disposition home health service (06) | DRG 436 ==
LOC: N.ED 04:35 → INTOOBSV 09:51 → N.EDINP 09:51 → N.TELES 14:55 → SUATTDRO 08-13 07:37
PROVIDERS: ADMIT Emergency Medicine; ATTEND Internal Medicine

== ENCOUNTER 2019-08-21 20:33 | Inpatient (IN) ==
[2019-08-21] MEDS ORDERED: NITROGLYCERIN SL 0.4 MG TABLET SL PRN (21:06)
[2019-08-21 21:28] LABS: Basophils # 0.1 10*3/uL (0.0-0.2); Basophils % 0.7 % (0.0-0.8); Eosinophils # 0.1 10*3/uL (0.0-0.87); Eosinophils % 0.8 % (0.00-10.9); Hematocrit 28.9 VOL% (35.7-47.0); Immature Granulocytes % 0.3 %; Immature Granulocytes Absolute 0.02 #; Lymphocytes # 0.7 10*3/uL (1.4-4.0); Lymphocytes % 9.5 % (21.3-54.2); Mean Corpuscular HGB Conc 31.1 GM/DL (32-36); Mean Corpuscular Volume 82.6 FL (87-102); Mean Platelet Volume 9.1 FL (9.6-12.0); Monocytes % 11.2 % (1.7-12.7); Neutrophils % 77.5 % (38.7-73.9); Platelet Count 284 T/CUMM (130-400); Red Cell Distribution Width 15.8 % (9.3-17.3); White Blood Count 7.5 T/CUMM (4-12)
[2019-08-21 21:46] LABS: Alanine Aminotransferase 11 U/L (13-56); Albumin 2.9 G/DL (3.4-5.0); Alkaline Phosphatase 94 U/L (45-117); Aspartate Amino Transferase 16 U/L (0-37); Bilirubin,Total < 0.39 MG/DL (0.2-1.0); Blood Urea Nitrogen 33 MG/DL (7-18); Calcium 9.9 MG/DL (8.5-10.1); Estimated Glom Filtration Rate 13 ML/MIN; Glucose 142 MG/DL (74-106); Osmolality,Calculated 278.1 MOS/KG (273-304)
[2019-08-21 22:04] LABS: PT Patient Result 10.3 SECS (9.8-11.9)
[2019-08-21] MEDS ORDERED: DOCUSATE SODIUM 100 MG CAPSULE PO PRN (22:42)
[2019-08-21] MEDS ORDERED: ALBUTEROL 2.5 MG/3 ML NEB RESP TX PRN (22:42)
[2019-08-21] MEDS ORDERED: ALUMINUM/MAGNES/SIMETH MAX STR 30 ML UDCUP PO PRN (22:42)
[2019-08-21] MEDS ORDERED: DEXTROSE 50% 25 GM/50 ML VIAL IV PRN ×2 (22:42→23:23)
[2019-08-21] MEDS ORDERED: GLUCAGON 1 MG VIAL IM PRN (22:42)
[2019-08-21] MEDS ORDERED: LACTULOSE 20 GM/30 ML UDCUP PO PRN (22:42)
[2019-08-21] MEDS ORDERED: SIMETHICONE CHEW 125 MG TABLET PO PRN (22:42)
[2019-08-21] MEDS ORDERED: ZALEPLON 5 MG CAPSULE PO PRN (23:21)
[2019-08-21] MEDS: hydrALAZINE 20 MG/1 ML VIAL IV PRN (23:36)
[2019-08-21] MEDS ORDERED: SODIUM CHLORIDE 0.9% 1,000 ML IV SCH (23:45)
[2019-08-22] MEDS ORDERED: amLODIPine 10 MG TABLET PO STA (00:47)
[2019-08-22 01:59] LABS: Apearance,Urine CLEAR (Clear); Bilirubin,Urine Negative (Negative); Blood, Urine Negative (Negative); Glucose,Urine (UA) 50 mg/dL (Negative); Ketones,Urine Negative (Negative); Nitrite,Urine Negative (Negative); Protein,Urine >=500 MG/DL; RBC,Urine 4 /HPF (0-4); Squamous Epithelial Cell,Urine Occasional /HPF (0-10); Urine Color Yellow (Yellow); Urine Specific Gravity 1.012 (1.001-1.035); Urine Urobilinogen < 2.0 EU/DL (0.2-1.0); WBC,Urine 1 /HPF (0-6)
[2019-08-22 03:28] LABS: Basophils % 0.4 % (0.0-0.8); Eosinophils % 0.4 % (0.00-10.9); Hematocrit 24.8 VOL% (35.7-47.0); Hemoglobin 7.9 GM/DL (12.0-16.0); Immature Granulocytes % 0.3 %; Immature Granulocytes Absolute 0.02 #; Lymphocytes # 0.6 10*3/uL (1.4-4.0); Lymphocytes % 8.5 % (21.3-54.2); Mean Corpuscular HGB Conc 31.9 GM/DL (32-36); Mean Platelet Volume 8.8 FL (9.6-12.0); Monocytes % 11.5 % (1.7-12.7); Neutrophils % 78.9 % (38.7-73.9); Platelet Count 233 T/CUMM (130-400); Red Blood Count 3.06 MC/CUMM (3.8-5.5); Red Cell Distribution Width 15.7 % (9.3-17.3); White Blood Count 7.4 T/CUMM (4-12)
[2019-08-22 04:09] LABS: Alanine Aminotransferase < 9 U/L (13-56); Albumin 2.6 G/DL (3.4-5.0); Alkaline Phosphatase 77 U/L (45-117); Aspartate Amino Transferase 15 U/L (0-37); Bilirubin,Total < 0.39 MG/DL (0.2-1.0); Blood Urea Nitrogen 34 MG/DL (7-18); Calcium 9.4 MG/DL (8.5-10.1); Estimated Glom Filtration Rate 13 ML/MIN; Glucose 100 MG/DL (74-106); Osmolality,Calculated 280.8 MOS/KG (273-304); Thyroid Stimulating Hormone 0.792 uIU/ml (0.358-3.74); Total Protein 6.9 G/DL (6.4-8.3)
[2019-08-22] MEDS: ONDANSETRON 4 MG/2 ML VIAL IV PRN (06:19)
[2019-08-22] MEDS: ACETAMINOPHEN 325 MG TABLET PO PRN (06:24)
[2019-08-22] MEDS: INSULIN REGULAR 100 UNIT/ML SUBCUT SCH ×4 (08:04→22:58)
[2019-08-22] MEDS: NEBIVOLOL 10 MG TABLET PO SCH ×2 (08:29→22:59)
[2019-08-22] MEDS: POLYETHYLENE GLYCOL POWDER 17 GM PACK PO SCH (08:30)
[2019-08-22] MEDS: CLOPIDOGREL 75 MG TABLET PO SCH (08:30)
[2019-08-22] MEDS: HEPARIN 5,000 UNIT/1 ML VIAL SUBCUT SCH ×2 (08:30→23:02)
[2019-08-22] MEDS: FERROUS GLUCONATE 324 MG TABLET PO SCH ×2 (08:30→22:59)
[2019-08-22] MEDS: MORPHINE 4 MG/1 ML VIAL IV PRN ×2 (08:30→14:35)
[2019-08-22] MEDS: PANTOPRAZOLE 40 MG TABLET PO SCH (08:30)
[2019-08-22] MEDS: ASPIRIN EC 81 MG TABLET PO SCH (08:30)
[2019-08-22] MEDS ORDERED: GABAPENTIN 100 MG CAPSULE PO PRN (08:58)
[2019-08-22] MEDS ORDERED: cloNIDine 0.2 MG/24 HR PATCH TRANSDERM SCH (09:00)
[2019-08-22] MEDS: DOXAZOSIN 1 MG TABLET PO SCH ×2 (10:34→22:59)
[2019-08-22] MEDS: AMOXICILLIN 500 MG CAPSULE PO SCH ×2 (10:34→22:58)
[2019-08-22] MEDS ORDERED: ALUM/MAG/SIMETH/LIDO VISC 1:1 30 ML BOTTLE PO ONE (11:28)
[2019-08-22] MEDS ORDERED: RIFABUTIN 150 MG CAPSULE PO SCH ×2 (11:30→21:00)
[2019-08-22] MEDS: HydrOXYzine PAMOATE 25 MG CAPSULE PO PRN ×2 (11:33→22:59)
[2019-08-22] MEDS: hydrALAZINE 20 MG/1 ML VIAL IV PRN (11:41)
[2019-08-22] MEDS ORDERED: cloNIDine 0.3 MG/24 HR PATCH TRANSDERM SCH (12:00)
[2019-08-22] MEDS: ISOSORBIDE MONONITRATE 30 MG TABLET PO SCH (12:40)
[2019-08-22] MEDS: RIFABUTIN 150 MG CAPSULE PO SCH (22:59)
[2019-08-23 05:54] LABS: Basophils % 0.1 % (0.0-0.8); Eosinophils % 0.1 % (0.00-10.9); Hematocrit 24.9 VOL% (35.7-47.0); Hemoglobin 7.8 GM/DL (12.0-16.0); Immature Granulocytes % 0.6 %; Immature Granulocytes Absolute 0.05 #; Lymphocytes # 0.3 10*3/uL (1.4-4.0); Lymphocytes % 3.6 % (21.3-54.2); Mean Corpuscular HGB Conc 31.3 GM/DL (32-36); Mean Corpuscular Volume 83.8 FL (87-102); Mean Platelet Volume 9.4 FL (9.6-12.0); Monocytes % 7.2 % (1.7-12.7); Neutrophils % 88.4 % (38.7-73.9); Platelet Count 241 T/CUMM (130-400); Red Blood Count 2.97 MC/CUMM (3.8-5.5); Red Cell Distribution Width 15.9 % (9.3-17.3); White Blood Count 8.7 T/CUMM (4-12)
[2019-08-23 06:02] LABS: Osmolality,Calculated 281.8 MOS/KG (273-304)
[2019-08-23 06:05] LABS: Risk Ratio 2.81; VLDL CHOLESTEROL 31.6 MG/DL
[2019-08-23 06:06] LABS: Alanine Aminotransferase < 9 U/L (13-56); Albumin 2.4 G/DL (3.4-5.0); Alkaline Phosphatase 78 U/L (45-117); Aspartate Amino Transferase 16 U/L (0-37); Blood Urea Nitrogen 38 MG/DL (7-18); Calcium 8.9 MG/DL (8.5-10.1); Estimated Glom Filtration Rate 12 ML/MIN; Glucose 103 MG/DL (74-106); Osmolality,Calculated 281.8 MOS/KG (273-304); Total Protein 6.8 G/DL (6.4-8.3)
[2019-08-23 06:07] LABS: Troponin I 0.017 NG/ML (0.00-0.045)
[2019-08-23 06:37] LABS: Band Neutrophils 6 % (0-10); Eosinophils 2 % (0-10); Hypochromasia 1+; Lymphocytes 4 % (20-55); Microcytosis 1+; Platelet Estimate Normal; Segmented Neutrophils 81 % (50-85); Total Cells Counted 100
[2019-08-23] MEDS: PANTOPRAZOLE 40 MG TABLET PO SCH (08:16)
[2019-08-23] MEDS: ISOSORBIDE MONONITRATE 30 MG TABLET PO SCH (08:16)
[2019-08-23] MEDS: FERROUS GLUCONATE 324 MG TABLET PO SCH ×2 (08:17→20:49)
[2019-08-23] MEDS: ASPIRIN EC 81 MG TABLET PO SCH (08:17)
[2019-08-23] MEDS: AMOXICILLIN 500 MG CAPSULE PO SCH ×2 (08:17→20:48)
[2019-08-23] MEDS: POLYETHYLENE GLYCOL POWDER 17 GM PACK PO SCH (08:18)
[2019-08-23] MEDS: RIFABUTIN 150 MG CAPSULE PO SCH ×2 (08:18→20:50)
[2019-08-23] MEDS: NEBIVOLOL 10 MG TABLET PO SCH ×2 (08:18→20:49)
[2019-08-23] MEDS: CLOPIDOGREL 75 MG TABLET PO SCH (08:18)
[2019-08-23] MEDS: HEPARIN 5,000 UNIT/1 ML VIAL SUBCUT SCH ×2 (08:20→20:49)
[2019-08-23] MEDS: DOXAZOSIN 1 MG TABLET PO SCH ×2 (08:26→20:49)
[2019-08-23] MEDS: INSULIN REGULAR 100 UNIT/ML SUBCUT SCH ×5 (08:34→20:49)
[2019-08-23] MEDS: ACETAMINOPHEN 325 MG TABLET PO PRN (15:10)
[2019-08-23] MEDS: MORPHINE 4 MG/1 ML VIAL IV PRN ×2 (20:26→23:29)
[2019-08-23] MEDS: ROSUVASTATIN 20 MG TABLET PO SCH (20:49)
[2019-08-24] MEDS: MORPHINE 4 MG/1 ML VIAL IV PRN ×2 (02:55→20:39)
[2019-08-24 05:55] LABS: Basophils % 0.3 % (0.0-0.8); Eosinophils # 0.1 10*3/uL (0.0-0.87); Eosinophils % 1.3 % (0.00-10.9); Hematocrit 22.7 VOL% (35.7-47.0); Hemoglobin 6.9 GM/DL (12.0-16.0); Immature Granulocytes % 0.4 %; Immature Granulocytes Absolute 0.03 #; Lymphocytes # 0.8 10*3/uL (1.4-4.0); Mean Corpuscular HGB Conc 30.4 GM/DL (32-36); Mean Corpuscular Volume 84.4 FL (87-102); Mean Platelet Volume 9.6 FL (9.6-12.0); Monocytes % 12.1 % (1.7-12.7); Neutrophils % 73.9 % (38.7-73.9); Platelet Count 238 T/CUMM (130-400); Red Blood Count 2.69 MC/CUMM (3.8-5.5); Red Cell Distribution Width 15.9 % (9.3-17.3); White Blood Count 6.9 T/CUMM (4-12)
[2019-08-24 06:19] LABS: Calcium 8.4 MG/DL (8.5-10.1); Osmolality,Calculated 284.1 MOS/KG (273-304)
[2019-08-24 06:21] LABS: Alanine Aminotransferase < 9 U/L (13-56); Albumin 2.3 G/DL (3.4-5.0); Alkaline Phosphatase 92 U/L (45-117); Aspartate Amino Transferase 16 U/L (0-37); Blood Urea Nitrogen 41 MG/DL (7-18); Calcium 8.7 MG/DL (8.5-10.1); Estimated Glom Filtration Rate 11 ML/MIN; Glucose 168 MG/DL (74-106); Osmolality,Calculated 283.1 MOS/KG (273-304); Total Protein 6.5 G/DL (6.4-8.3)
[2019-08-24] MEDS ORDERED: SODIUM CHLORIDE 0.9% 1,000 ML IV PRN (06:51)
[2019-08-24 07:31] LABS: % Iron Saturation 14.6 % (18-50); Ferritin 208.8 ng/ml (8-252)
[2019-08-24] MEDS: INSULIN REGULAR 100 UNIT/ML SUBCUT SCH ×4 (08:50→21:14)
[2019-08-24] MEDS: NEBIVOLOL 10 MG TABLET PO SCH ×2 (08:56→21:13)
[2019-08-24] MEDS: AMOXICILLIN 500 MG CAPSULE PO SCH ×2 (08:56→21:12)
[2019-08-24] MEDS: CLOPIDOGREL 75 MG TABLET PO SCH (08:57)
[2019-08-24] MEDS: ASPIRIN EC 81 MG TABLET PO SCH (08:57)
[2019-08-24] MEDS: PANTOPRAZOLE 40 MG TABLET PO SCH (08:57)
[2019-08-24] MEDS: ISOSORBIDE MONONITRATE 30 MG TABLET PO SCH (08:57)
[2019-08-24] MEDS: FERROUS GLUCONATE 324 MG TABLET PO SCH ×2 (08:57→21:14)
[2019-08-24] MEDS: HEPARIN 5,000 UNIT/1 ML VIAL SUBCUT SCH ×2 (08:58→21:12)
[2019-08-24] MEDS: DOXAZOSIN 1 MG TABLET PO SCH ×2 (09:07→21:13)
[2019-08-24] MEDS: RIFABUTIN 150 MG CAPSULE PO SCH ×2 (09:07→21:14)
[2019-08-24] MEDS: POLYETHYLENE GLYCOL POWDER 17 GM PACK PO SCH (09:07)
[2019-08-24] MEDS: HydrOXYzine PAMOATE 25 MG CAPSULE PO PRN (09:08)
[2019-08-24 10:05] LABS: Folate 13.9 NG/ML (5.4-24.0)
[2019-08-24] MEDS ORDERED: DOXAZOSIN 1 MG TABLET PO ONE (11:44)
[2019-08-24 19:50] LABS: Hematocrit 28.1 VOL% (35.7-47.0); Hemoglobin 8.8 GM/DL (12.0-16.0)
[2019-08-24] MEDS: ROSUVASTATIN 20 MG TABLET PO SCH (21:13)
[2019-08-25] MEDS: MORPHINE 4 MG/1 ML VIAL IV PRN ×2 (00:54→04:49)
[2019-08-25 05:14] LABS: Basophils % 0.4 % (0.0-0.8); Eosinophils # 0.1 10*3/uL (0.0-0.87); Eosinophils % 1.4 % (0.00-10.9); Hematocrit 28.2 VOL% (35.7-47.0); Immature Granulocytes % 0.3 %; Immature Granulocytes Absolute 0.02 #; Lymphocytes # 0.9 10*3/uL (1.4-4.0); Lymphocytes % 11.6 % (21.3-54.2); Mean Corpuscular HGB Conc 31.9 GM/DL (32-36); Mean Corpuscular Volume 82.9 FL (87-102); Mean Platelet Volume 8.8 FL (9.6-12.0); Monocytes % 11.6 % (1.7-12.7); Neutrophils % 74.7 % (38.7-73.9); Platelet Count 222 T/CUMM (130-400); Red Cell Distribution Width 15.5 % (9.3-17.3); White Blood Count 7.3 T/CUMM (4-12)
[2019-08-25 05:28] LABS: Calcium 8.7 MG/DL (8.5-10.1); Osmolality,Calculated 283.2 MOS/KG (273-304)
[2019-08-25] MEDS: ONDANSETRON 4 MG/2 ML VIAL IV PRN (06:35)
[2019-08-25] MEDS: hydrALAZINE 20 MG/1 ML VIAL IV PRN (07:44)
[2019-08-25] MEDS: INSULIN REGULAR 100 UNIT/ML SUBCUT SCH (08:51)
[2019-08-25] MEDS: NEBIVOLOL 10 MG TABLET PO SCH (08:53)
[2019-08-25] MEDS: ASPIRIN EC 81 MG TABLET PO SCH (08:53)
[2019-08-25] MEDS: AMOXICILLIN 500 MG CAPSULE PO SCH (08:53)
[2019-08-25] MEDS: RIFABUTIN 150 MG CAPSULE PO SCH (08:54)
[2019-08-25] MEDS: FERROUS GLUCONATE 324 MG TABLET PO SCH (08:54)
[2019-08-25] MEDS: HEPARIN 5,000 UNIT/1 ML VIAL SUBCUT SCH (08:54)
[2019-08-25] MEDS: POLYETHYLENE GLYCOL POWDER 17 GM PACK PO SCH (08:54)
[2019-08-25] MEDS: DOXAZOSIN 1 MG TABLET PO SCH (08:54)
[2019-08-25] MEDS: ISOSORBIDE MONONITRATE 30 MG TABLET PO SCH (08:54)
[2019-08-25] MEDS: CLOPIDOGREL 75 MG TABLET PO SCH (08:55)
[2019-08-25] MEDS: PANTOPRAZOLE 40 MG TABLET PO SCH (08:55)
[2019-08-25] MEDS: HydrOXYzine PAMOATE 25 MG CAPSULE PO PRN (08:56)
[2019-08-25 12:09] VITALS: BP 188/65
== END 2019-08-25 12:28 | disposition home health service (06) | DRG 313 ==
LOC: N.ED 20:33 → SUATTDRO 22:42 → N.EDINP 22:42 → N.TELEN 23:43
PROVIDERS: ADMIT Internal Medicine; ATTEND Family Medicine

== ENCOUNTER 2019-09-14 04:19 | Observation (INO) ==
[2019-09-14] MEDS ORDERED: ONDANSETRON 4 MG/2 ML VIAL IV STA (04:59)
[2019-09-14] MEDS ORDERED: SODIUM CHLORIDE 0.9% 1,000 ML IV STA (04:59)
[2019-09-14] MEDS ORDERED: MORPHINE 4 MG/1 ML VIAL IV STA (04:59)
[2019-09-14 05:24] LABS: Basophils % 0.2 % (0.0-0.8); Hematocrit 32.7 VOL% (35.7-47.0); Hemoglobin 10.1 GM/DL (12.0-16.0); Immature Granulocytes % 0.4 %; Immature Granulocytes Absolute 0.05 #; Lymphocytes # 0.4 10*3/uL (1.4-4.0); Lymphocytes % 3.3 % (21.3-54.2); Mean Corpuscular HGB Conc 30.9 GM/DL (32-36); Mean Corpuscular Volume 86.5 FL (87-102); Mean Platelet Volume 9.3 FL (9.6-12.0); Neutrophils % 89.1 % (38.7-73.9); Platelet Count 251 T/CUMM (130-400); Red Blood Count 3.78 MC/CUMM (3.8-5.5)
[2019-09-14 05:51] LABS: Alanine Aminotransferase 10 U/L (13-56); Albumin 2.7 G/DL (3.4-5.0); Alkaline Phosphatase 124 U/L (45-117); Aspartate Amino Transferase 21 U/L (0-37); Bilirubin,Total < 0.39 MG/DL (0.2-1.0); Blood Urea Nitrogen 54 MG/DL (7-18); Estimated Glom Filtration Rate 8 ML/MIN; Glucose 166 MG/DL (74-106); Osmolality,Calculated 291.8 MOS/KG (273-304)
[2019-09-14] MEDS ORDERED: PANTOPRAZOLE INJ 200 MG in SODIUM CHLORIDE 0.9% 250 ML IV SCH (06:00)
[2019-09-14 06:24] LABS: Anisocytosis 2+; Band Neutrophils 4 % (0-10); Lymphocytes 2 % (20-55); Macrocytosis Slight; Platelet Estimate Normal; Poikilocytosis Slight; Segmented Neutrophils 83 % (50-85); Total Cells Counted 100
[2019-09-14] MEDS ORDERED: PANTOPRAZOLE 40 MG VIAL IV ONE (06:41)
[2019-09-14] MEDS ORDERED: DEXTROSE 50% 25 GM/50 ML VIAL IV PRN (07:16)
[2019-09-14] MEDS ORDERED: ACETAMINOPHEN 325 MG TABLET PO PRN (07:16)
[2019-09-14] MEDS ORDERED: GLUCAGON 1 MG VIAL IM PRN (07:16)
[2019-09-14] MEDS ORDERED: ONDANSETRON 4 MG/2 ML VIAL IV PRN (07:16)
[2019-09-14] MEDS ORDERED: PANTOPRAZOLE 40 MG VIAL IV SCH (09:00)
[2019-09-14 09:34] LABS: Hematocrit 31.6 VOL% (35.7-47.0); Hemoglobin 9.4 GM/DL (12.0-16.0)
[2019-09-14] MEDS: INSULIN REGULAR 100 UNIT/ML SUBCUT SCH ×4 (09:55→21:13)
[2019-09-14] MEDS: LINACLOTIDE 145 MCG CAPSULE PO SCH (10:49)
[2019-09-14] MEDS: SODIUM CHLORIDE 0.9% 1,000 ML IV SCH ×2 (10:50→21:11)
[2019-09-14] MEDS ORDERED: ONDANSETRON 4 MG TABLET PO PRN (11:05)
[2019-09-14] MEDS ORDERED: NITROGLYCERIN SL 0.4 MG TABLET SL PRN (11:05)
[2019-09-14] MEDS ORDERED: GABAPENTIN 100 MG CAPSULE PO PRN (11:05)
[2019-09-14 13:46] LABS: Hematocrit 30.6 VOL% (35.7-47.0); Hemoglobin 9.2 GM/DL (12.0-16.0)
[2019-09-14] MEDS: POLYETHYLENE GLYCOL POWDER 17 GM PACK PO SCH ×2 (16:46→21:08)
[2019-09-14 19:25] LABS: Hematocrit 26.7 VOL% (35.7-47.0); Hemoglobin 8.1 GM/DL (12.0-16.0)
[2019-09-14] MEDS ORDERED: INSULIN NPH 100 UNIT/ML SUBCUT SCH (21:00)
[2019-09-14] MEDS ORDERED: ROSUVASTATIN 20 MG TABLET PO SCH (21:00)
[2019-09-14] MEDS ORDERED: GLIMEPIRIDE 4 MG TABLET PO SCH (21:00)
[2019-09-14] MEDS: DOCUSATE/SENNA 50-8.6 MG TABLET PO SCH (21:08)
[2019-09-14] MEDS: NEBIVOLOL 10 MG TABLET PO SCH (21:08)
[2019-09-14] MEDS: DOXAZOSIN 1 MG TABLET PO SCH (21:09)
[2019-09-14] MEDS: FERROUS GLUCONATE 324 MG TABLET PO SCH (21:09)
[2019-09-15 01:09] LABS: Hematocrit 26.5 VOL% (35.7-47.0); Hemoglobin 8.2 GM/DL (12.0-16.0)
[2019-09-15 05:07] LABS: Bacteria,Urine Occasional /HPF (Few); Bilirubin,Urine Negative (Negative); Blood, Urine Negative (Negative); Glucose,Urine (UA) 50 mg/dL (Negative); Ketones,Urine Negative (Negative); Mucus,Urine Occasional /LPF (Occasional); Nitrite,Urine Negative (Negative); Protein,Urine >=500 MG/DL; RBC,Urine 4 /HPF (0-4); Squamous Epithelial Cell,Urine Occasional /HPF (0-10); Urine Appearance CLEAR (Clear); Urine Color Yellow (Yellow); Urine Specific Gravity 1.011 (1.001-1.035); Urine Urobilinogen < 2.0 EU/DL (0.2-1.0); WBC,Urine 1 /HPF (0-6)
[2019-09-15] MEDS ORDERED: INSULIN NPH 100 UNIT/ML SUBCUT SCH (07:30)
[2019-09-15 07:56] LABS: Calcium 8.1 MG/DL (8.5-10.1); Osmolality,Calculated 288.4 MOS/KG (273-304)
[2019-09-15] MEDS: SODIUM CHLORIDE 0.9% 1,000 ML IV SCH (07:57)
[2019-09-15] MEDS ORDERED: PANTOPRAZOLE 40 MG TABLET PO SCH (09:00)
[2019-09-15] MEDS ORDERED: ASPIRIN CHEW 81 MG TABLET PO SCH (09:00)
[2019-09-15] MEDS ORDERED: PANTOPRAZOLE 40 MG VIAL IV SCH (09:00)
[2019-09-15] MEDS ORDERED: ISOSORBIDE MONONITRATE 30 MG TABLET PO SCH ×2 (09:00)
[2019-09-15] MEDS: LINACLOTIDE 145 MCG CAPSULE PO SCH (09:17)
[2019-09-15] MEDS: INSULIN REGULAR 100 UNIT/ML SUBCUT SCH ×3 (09:17→16:30)
[2019-09-15] MEDS: DOXAZOSIN 1 MG TABLET PO SCH (09:18)
[2019-09-15] MEDS: NEBIVOLOL 10 MG TABLET PO SCH (09:18)
[2019-09-15] MEDS: FERROUS GLUCONATE 324 MG TABLET PO SCH (09:18)
[2019-09-15] MEDS: POLYETHYLENE GLYCOL POWDER 17 GM PACK PO SCH ×2 (09:18→16:30)
[2019-09-15] MEDS: DOCUSATE/SENNA 50-8.6 MG TABLET PO SCH (09:19)
[2019-09-15] MEDS ORDERED: HEPARIN LOCK FLUSH 500 UNIT/5 ML SYRINGE IV ONE (09:49)
[2019-09-15] MEDS ORDERED: MORPHINE IR 15 MG TABLET PO PRN (12:59)
[2019-09-15] MEDS ORDERED: INSULIN GLARGINE 100 UNIT/ML SUBCUT SCH (15:00)
[2019-09-15 15:46] VITALS: BP 162/66
[2019-09-21] MEDS ORDERED: cloNIDine 0.3 MG/24 HR PATCH TRANSDERM SCH (09:00)
== END 2019-09-15 16:26 | disposition home or self-care (01) ==
LOC: N.ED 04:19 → N.EDINP 04:19 → N.4E 07:59
PROVIDERS: ADMIT Internal Medicine; ATTEND Internal Medicine

== ENCOUNTER 2019-09-21 15:44 | Observation (INO) ==
[2019-09-21] MEDS ORDERED: SODIUM CHLORIDE 0.9% 1,000 ML IV STA (16:48)
[2019-09-21 17:42] LABS: Basophils # 0.1 10*3/uL (0.0-0.2); Basophils % 0.5 % (0.0-0.8); Eosinophils # 0.1 10*3/uL (0.0-0.87); Eosinophils % 0.6 % (0.00-10.9); Hematocrit 31.2 VOL% (35.7-47.0); Hemoglobin 9.4 GM/DL (12.0-16.0); Immature Granulocytes % 0.4 %; Immature Granulocytes Absolute 0.04 #; Lymphocytes # 0.8 10*3/uL (1.4-4.0); Lymphocytes % 7.1 % (21.3-54.2); Mean Corpuscular HGB Conc 30.1 GM/DL (32-36); Mean Corpuscular Volume 88.6 FL (87-102); Mean Platelet Volume 9.3 FL (9.6-12.0); Monocytes % 6.8 % (1.7-12.7); Neutrophils % 84.6 % (38.7-73.9); Platelet Count 288 T/CUMM (130-400); Red Blood Count 3.52 MC/CUMM (3.8-5.5); White Blood Count 11.1 T/CUMM (4-12)
[2019-09-21 17:44] LABS: Amorphous Crystals,Urine Occasional /HPF (Few); Apearance,Urine Slightly Hazy (Clear); Bacteria,Urine Occasional /HPF (Few); Bilirubin,Urine Negative (Negative); Blood, Urine Negative (Negative); Glucose,Urine (UA) 50 mg/dL (Negative); Ketones,Urine Negative (Negative); Mucus,Urine Occasional /LPF (Occasional); Nitrite,Urine Negative (Negative); Protein,Urine >=500 MG/DL; Squamous Epithelial Cell,Urine Few /HPF (0-10); Urine Color Yellow (Yellow); Urine Specific Gravity 1.015 (1.001-1.035); Urine Urobilinogen < 2.0 EU/DL (0.2-1.0)
[2019-09-21 17:47] LABS: Barbiturates Screen,Urine Negative (Negative); Benzodiazepines Screen,Urine Negative (Negative); Cannabinoid Screen,Urine Negative (Negative); Opiate Screen,Urine Positive (Negative); Phencyclidine Screen,Urine Negative (Negative)
[2019-09-21 17:54] LABS: PT Patient Result 10.5 SECS (9.8-11.9); Partial Thromboplastin Time 30.2 SECS (23.9-33.8)
[2019-09-21 18:00] LABS: Alanine Aminotransferase < 9 U/L (13-56); Albumin 2.6 G/DL (3.4-5.0); Alkaline Phosphatase 91 U/L (45-117); Aspartate Amino Transferase 19 U/L (0-37); Blood Urea Nitrogen 38 MG/DL (7-18); Calcium 9.8 MG/DL (8.5-10.1); Estimated Glom Filtration Rate 10 ML/MIN; Glucose 142 MG/DL (74-106); Osmolality,Calculated 291.3 MOS/KG (273-304); Total Protein 8.1 G/DL (6.4-8.3)
[2019-09-21 18:03] LABS: Troponin I < 0.015 NG/ML (0.00-0.045)
[2019-09-21] MEDS ORDERED: GLUCAGON 1 MG VIAL IM PRN ×2 (19:25)
[2019-09-21] MEDS ORDERED: DEXTROSE 50% 25 GM/50 ML VIAL IV PRN ×2 (19:25)
[2019-09-21] MEDS ORDERED: LACTULOSE 20 GM/30 ML UDCUP PO PRN (19:32)
[2019-09-21] MEDS ORDERED: POLYETHYLENE GLYCOL POWDER 17 GM PACK PO PRN (19:50)
[2019-09-21] MEDS ORDERED: fentaNYL 12 MCG/HR PATCH TRANSDERM SCH (22:00)
[2019-09-21] MEDS ORDERED: cloNIDine 0.3 MG/24 HR PATCH TRANSDERM SCH (22:00)
[2019-09-21] MEDS: INSULIN LISPRO 100 UNIT/ML SUBCUT SCH (23:18)
[2019-09-21] MEDS: DOXAZOSIN 1 MG TABLET PO SCH (23:18)
[2019-09-21] MEDS: NEBIVOLOL 10 MG TABLET PO SCH (23:19)
[2019-09-21] MEDS: ROSUVASTATIN 20 MG TABLET PO SCH (23:20)
[2019-09-21] MEDS: FERROUS GLUCONATE 324 MG TABLET PO SCH (23:20)
[2019-09-22] MEDS: ENOXAPARIN 30 MG/0.3 ML SYRINGE SUBCUT SCH ×2 (01:02→21:31)
[2019-09-22] MEDS: PANTOPRAZOLE 40 MG TABLET PO SCH ×3 (01:02→21:33)
[2019-09-22 06:31] LABS: Basophils # 0.1 10*3/uL (0.0-0.2); Basophils % 0.7 % (0.0-0.8); Eosinophils # 0.1 10*3/uL (0.0-0.87); Eosinophils % 1.4 % (0.00-10.9); Hematocrit 25.9 VOL% (35.7-47.0); Immature Granulocytes % 0.4 %; Immature Granulocytes Absolute 0.03 #; Lymphocytes # 0.8 10*3/uL (1.4-4.0); Lymphocytes % 10.7 % (21.3-54.2); Mean Corpuscular HGB Conc 30.5 GM/DL (32-36); Mean Corpuscular Volume 87.8 FL (87-102); Mean Platelet Volume 9.6 FL (9.6-12.0); Monocytes % 10.3 % (1.7-12.7); Neutrophils % 76.5 % (38.7-73.9); Platelet Count 231 T/CUMM (130-400); Red Blood Count 2.95 MC/CUMM (3.8-5.5); Red Cell Distribution Width 15.1 % (9.3-17.3); White Blood Count 7.6 T/CUMM (4-12)
[2019-09-22 06:32] LABS: Hemoglobin 7.9 GM/DL (12.0-16.0)
[2019-09-22 06:38] LABS: Alanine Aminotransferase < 6 U/L (13-56); Albumin 2.1 G/DL (3.4-5.0); Alkaline Phosphatase 53 U/L (45-117); Aspartate Amino Transferase 16 U/L (0-37); Bilirubin,Total < 0.39 MG/DL (0.2-1.0); Blood Urea Nitrogen 39 MG/DL (7-18); Estimated Glom Filtration Rate 11 ML/MIN; Glucose 99 MG/DL (74-106); Osmolality,Calculated 296.7 MOS/KG (273-304); Total Protein 6.5 G/DL (6.4-8.3)
[2019-09-22] MEDS: INSULIN LISPRO 100 UNIT/ML SUBCUT SCH ×4 (08:03→21:29)
[2019-09-22] MEDS: INSULIN GLARGINE 100 UNIT/ML SUBCUT SCH (09:06)
[2019-09-22] MEDS: NEBIVOLOL 10 MG TABLET PO SCH ×2 (09:06→21:33)
[2019-09-22] MEDS: ISOSORBIDE MONONITRATE 30 MG TABLET PO SCH (09:07)
[2019-09-22] MEDS: FERROUS GLUCONATE 324 MG TABLET PO SCH ×2 (09:07→21:33)
[2019-09-22] MEDS: CLOPIDOGREL 75 MG TABLET PO SCH (09:07)
[2019-09-22] MEDS: ASPIRIN CHEW 81 MG TABLET PO SCH (09:07)
[2019-09-22] MEDS: DOXAZOSIN 1 MG TABLET PO SCH ×2 (09:07→21:51)
[2019-09-22] MEDS: ROSUVASTATIN 20 MG TABLET PO SCH (21:33)
[2019-09-23 06:17] LABS: Basophils # 0.1 10*3/uL (0.0-0.2); Basophils % 0.7 % (0.0-0.8); Eosinophils # 0.1 10*3/uL (0.0-0.87); Eosinophils % 2.1 % (0.00-10.9); Hematocrit 25.9 VOL% (35.7-47.0); Hemoglobin 7.9 GM/DL (12.0-16.0); Immature Granulocytes % 0.3 %; Immature Granulocytes Absolute 0.02 #; Lymphocytes # 1.1 10*3/uL (1.4-4.0); Lymphocytes % 16.4 % (21.3-54.2); Mean Corpuscular HGB Conc 30.5 GM/DL (32-36); Mean Corpuscular Volume 87.5 FL (87-102); Mean Platelet Volume 9.6 FL (9.6-12.0); Monocytes % 11.8 % (1.7-12.7); Neutrophils % 68.7 % (38.7-73.9); Platelet Count 227 T/CUMM (130-400); Red Blood Count 2.96 MC/CUMM (3.8-5.5); Red Cell Distribution Width 15.3 % (9.3-17.3); White Blood Count 6.8 T/CUMM (4-12)
[2019-09-23 06:49] LABS: Calcium 8.7 MG/DL (8.5-10.1)
[2019-09-23] MEDS: INSULIN LISPRO 100 UNIT/ML SUBCUT SCH ×4 (08:14→21:25)
[2019-09-23] MEDS: INSULIN GLARGINE 100 UNIT/ML SUBCUT SCH (09:14)
[2019-09-23] MEDS: ASPIRIN CHEW 81 MG TABLET PO SCH (09:15)
[2019-09-23] MEDS: NEBIVOLOL 10 MG TABLET PO SCH ×2 (09:15→21:25)
[2019-09-23] MEDS: ISOSORBIDE MONONITRATE 30 MG TABLET PO SCH (09:15)
[2019-09-23] MEDS: DOXAZOSIN 1 MG TABLET PO SCH ×2 (09:15→21:25)
[2019-09-23] MEDS: PANTOPRAZOLE 40 MG TABLET PO SCH ×2 (09:15→21:24)
[2019-09-23] MEDS: FERROUS GLUCONATE 324 MG TABLET PO SCH ×2 (09:16→21:24)
[2019-09-23] MEDS: CLOPIDOGREL 75 MG TABLET PO SCH (09:16)
[2019-09-23] MEDS ORDERED: BISACODYL 5 MG TABLET PO PRN (14:40)
[2019-09-23] MEDS ORDERED: MAGNESIUM HYDROXIDE SUSP 30 ML UDCUP PO PRN (15:11)
[2019-09-23] MEDS: ROSUVASTATIN 20 MG TABLET PO SCH (21:24)
[2019-09-23] MEDS: ENOXAPARIN 30 MG/0.3 ML SYRINGE SUBCUT SCH (21:25)
[2019-09-24 05:47] LABS: Basophils % 0.5 % (0.0-0.8); Eosinophils # 0.1 10*3/uL (0.0-0.87); Eosinophils % 1.3 % (0.00-10.9); Hematocrit 29.7 VOL% (35.7-47.0); Hemoglobin 8.9 GM/DL (12.0-16.0); Immature Granulocytes % 0.5 %; Immature Granulocytes Absolute 0.04 #; Lymphocytes % 13.2 % (21.3-54.2); Mean Corpuscular Volume 87.9 FL (87-102); Mean Platelet Volume 8.8 FL (9.6-12.0); Monocytes % 9.9 % (1.7-12.7); Neutrophils % 74.6 % (38.7-73.9); Platelet Count 258 T/CUMM (130-400); Red Blood Count 3.38 MC/CUMM (3.8-5.5); Red Cell Distribution Width 15.5 % (9.3-17.3); White Blood Count 7.6 T/CUMM (4-12)
[2019-09-24 05:59] LABS: Calcium 9.3 MG/DL (8.5-10.1); Osmolality,Calculated 290.3 MOS/KG (273-304)
[2019-09-24] MEDS: INSULIN LISPRO 100 UNIT/ML SUBCUT SCH ×2 (08:52→12:07)
[2019-09-24] MEDS: DOXAZOSIN 1 MG TABLET PO SCH (08:53)
[2019-09-24] MEDS: INSULIN GLARGINE 100 UNIT/ML SUBCUT SCH (08:53)
[2019-09-24] MEDS: CLOPIDOGREL 75 MG TABLET PO SCH (08:54)
[2019-09-24] MEDS: ASPIRIN CHEW 81 MG TABLET PO SCH (08:54)
[2019-09-24] MEDS: FERROUS GLUCONATE 324 MG TABLET PO SCH (08:54)
[2019-09-24] MEDS: ISOSORBIDE MONONITRATE 30 MG TABLET PO SCH (08:54)
[2019-09-24] MEDS: NEBIVOLOL 10 MG TABLET PO SCH (08:54)
[2019-09-24] MEDS: PANTOPRAZOLE 40 MG TABLET PO SCH (08:54)
[2019-09-24 12:17] VITALS: BP 141/49
== END 2019-09-24 12:33 | disposition home health service (06) ==
LOC: EDUNIT# → EDBD → N.ED 15:44 → INTOOBSV 19:25 → N.EDINP 19:25 → N.TELEN 21:08
PROVIDERS: ADMIT Internal Medicine; ATTEND Internal Medicine

== ENCOUNTER 2019-10-12 12:49 | Inpatient (IN) ==
[2019-10-12] MEDS ORDERED: SODIUM CHLORIDE 0.9% 1,000 ML IV STA (13:01)
[2019-10-12 13:25] LABS: Basophils % 0.2 % (0.0-0.8); Eosinophils % 0.4 % (0.00-10.9); Hematocrit 32.3 VOL% (35.7-47.0); Hemoglobin 10.1 GM/DL (12.0-16.0); Immature Granulocytes % 0.4 %; Immature Granulocytes Absolute 0.04 #; Lymphocytes # 0.6 10*3/uL (1.4-4.0); Lymphocytes % 5.7 % (21.3-54.2); Mean Corpuscular HGB Conc 31.3 GM/DL (32-36); Mean Corpuscular Volume 86.4 FL (87-102); Monocytes % 5.8 % (1.7-12.7); Neutrophils % 87.5 % (38.7-73.9); Platelet Count 250 T/CUMM (130-400); Red Blood Count 3.74 MC/CUMM (3.8-5.5)
[2019-10-12 13:51] LABS: Albumin 2.5 G/DL (3.4-5.0); Bilirubin,Total 0.4 MG/DL (0.2-1.0); Osmolality,Calculated 291.3 MOS/KG (273-304); Total Protein 6.9 G/DL (6.4-8.3)
[2019-10-12 14:20] LABS: Apearance,Urine CLEAR (Clear); Bacteria,Urine Occasional /HPF (Few); Bilirubin,Urine Negative (Negative); Blood, Urine Negative (Negative); Glucose,Urine (UA) Negative (Negative); Ketones,Urine 5 mg/dL (Negative); Mucus,Urine Occasional /LPF (Occasional); Nitrite,Urine Negative (Negative); Protein,Urine >=500 MG/DL; RBC,Urine 4 /HPF (0-4); Squamous Epithelial Cell,Urine Occasional /HPF (0-10); Urine Color Yellow (Yellow); Urine Specific Gravity 1.011 (1.001-1.035); Urine Urobilinogen < 2.0 EU/DL (0.2-1.0); WBC,Urine 2 /HPF (0-6)
[2019-10-12] MEDS ORDERED: DOCUSATE SODIUM 100 MG CAPSULE PO PRN (15:16)
[2019-10-12] MEDS ORDERED: ACETAMINOPHEN 325 MG TABLET PO PRN (15:16)
[2019-10-12] MEDS ORDERED: DEXTROSE 50% 25 GM/50 ML VIAL IV PRN (15:16)
[2019-10-12] MEDS ORDERED: GLUCAGON 1 MG VIAL IM PRN (15:16)
[2019-10-12] MEDS ORDERED: hydrALAZINE 20 MG/1 ML VIAL IV PRN (15:16)
[2019-10-12] MEDS ORDERED: cloNIDine 0.1 MG TABLET PO PRN (15:19)
[2019-10-12] MEDS ORDERED: SIMETHICONE CHEW 80 MG TABLET PO PRN (15:19)
[2019-10-12] MEDS ORDERED: hydrOXYzine HCL 25 MG TABLET PO PRN (15:19)
[2019-10-12] MEDS ORDERED: SUCRALFATE 1 GM/10 ML UDCUP PO PRN (15:19)
[2019-10-12] MEDS ORDERED: HEPARIN 5,000 UNIT/1 ML VIAL SUBCUT SCH (15:30)
[2019-10-12 15:53] LABS: Risk Ratio 1.72; Thyroid Stimulating Hormone 0.878 uIU/ml (0.358-3.74)
[2019-10-12] MEDS: SODIUM CHLORIDE 0.45% 1,000 ML IV SCH (17:10)
[2019-10-12] MEDS: INSULIN LISPRO 100 UNIT/ML SUBCUT SCH ×2 (17:49→20:56)
[2019-10-12] MEDS: NITROGLYCERIN SL 0.4 MG TABLET SL PRN (20:50)
[2019-10-12] MEDS: ROSUVASTATIN 20 MG TABLET PO SCH (20:54)
[2019-10-12] MEDS: DOXAZOSIN 1 MG TABLET PO SCH (20:54)
[2019-10-12] MEDS: NEBIVOLOL 10 MG TABLET PO SCH (20:55)
[2019-10-12] MEDS: CLOPIDOGREL 75 MG TABLET PO SCH (20:55)
[2019-10-12] MEDS: MIRTAZAPINE 15 MG TABLET PO SCH (20:55)
[2019-10-12] MEDS: PANTOPRAZOLE 40 MG TABLET PO SCH (20:55)
[2019-10-12] MEDS: ASPIRIN CHEW 81 MG TABLET PO SCH (20:55)
[2019-10-12] MEDS: FERROUS GLUCONATE 324 MG TABLET PO SCH (20:55)
[2019-10-12] MEDS ORDERED: GABAPENTIN 100 MG CAPSULE PO SCH (21:00)
[2019-10-13 05:37] LABS: Basophils % 0.4 % (0.0-0.8); Eosinophils # 0.1 10*3/uL (0.0-0.87); Eosinophils % 0.8 % (0.00-10.9); Hematocrit 25.7 VOL% (35.7-47.0); Hemoglobin 7.9 GM/DL (12.0-16.0); Immature Granulocytes % 0.3 %; Immature Granulocytes Absolute 0.03 #; Lymphocytes % 10.4 % (21.3-54.2); Mean Corpuscular HGB Conc 30.7 GM/DL (32-36); Mean Corpuscular Volume 86.8 FL (87-102); Monocytes % 9.2 % (1.7-12.7); Neutrophils % 78.9 % (38.7-73.9); Platelet Count 185 T/CUMM (130-400); Red Blood Count 2.96 MC/CUMM (3.8-5.5); Red Cell Distribution Width 15.1 % (9.3-17.3); White Blood Count 9.4 T/CUMM (4-12)
[2019-10-13] MEDS: NITROGLYCERIN SL 0.4 MG TABLET SL PRN (06:12)
[2019-10-13 06:17] LABS: Bilirubin,Total 0.4 MG/DL (0.2-1.0); Calcium 8.8 MG/DL (8.5-10.1); Osmolality,Calculated 293.1 MOS/KG (273-304); Total Protein 6.4 G/DL (6.4-8.3)
[2019-10-13] MEDS: SODIUM CHLORIDE 0.45% 1,000 ML IV SCH (06:22)
[2019-10-13 08:11] LABS: Hematocrit 28.8 VOL% (35.7-47.0); Hemoglobin 8.7 GM/DL (12.0-16.0)
[2019-10-13] MEDS: INSULIN LISPRO 100 UNIT/ML SUBCUT SCH ×4 (08:33→22:38)
[2019-10-13] MEDS: NEBIVOLOL 10 MG TABLET PO SCH ×2 (10:36→22:36)
[2019-10-13] MEDS: PANTOPRAZOLE 40 MG TABLET PO SCH ×2 (10:36→22:37)
[2019-10-13] MEDS: FERROUS GLUCONATE 324 MG TABLET PO SCH ×2 (10:36→22:37)
[2019-10-13] MEDS: ISOSORBIDE MONONITRATE 60 MG TABLET PO SCH (10:36)
[2019-10-13] MEDS: LINACLOTIDE 145 MCG CAPSULE PO SCH (10:37)
[2019-10-13] MEDS: LACTULOSE 20 GM/30 ML UDCUP PO SCH ×2 (10:37→22:38)
[2019-10-13] MEDS: DOXAZOSIN 1 MG TABLET PO SCH (10:38)
[2019-10-13] MEDS ORDERED: ceFAZolin 1,000 MG in SYRINGE 1 EACH IV ONE (14:31)
[2019-10-13] MEDS: MIRTAZAPINE 15 MG TABLET PO SCH (22:37)
[2019-10-13] MEDS: ASPIRIN CHEW 81 MG TABLET PO SCH (22:37)
[2019-10-13] MEDS: ROSUVASTATIN 20 MG TABLET PO SCH (22:37)
[2019-10-13] MEDS: ONDANSETRON 4 MG/2 ML VIAL IV PRN (22:52)
[2019-10-14] MEDS: SODIUM CHLORIDE 0.45% 1,000 ML IV SCH ×3 (00:02→21:42)
[2019-10-14] MEDS: hydrALAZINE 20 MG/1 ML VIAL IV PRN ×2 (05:41→07:57)
[2019-10-14 05:50] LABS: Basophils # 0.1 10*3/uL (0.0-0.2); Basophils % 0.4 % (0.0-0.8); Eosinophils # 0.2 10*3/uL (0.0-0.87); Eosinophils % 1.7 % (0.00-10.9); Hemoglobin 8.2 GM/DL (12.0-16.0); Immature Granulocytes % 0.3 %; Immature Granulocytes Absolute 0.04 #; Lymphocytes # 0.9 10*3/uL (1.4-4.0); Lymphocytes % 7.6 % (21.3-54.2); Mean Corpuscular HGB Conc 30.4 GM/DL (32-36); Mean Corpuscular Volume 87.1 FL (87-102); Mean Platelet Volume 9.5 FL (9.6-12.0); Monocytes % 9.2 % (1.7-12.7); Neutrophils % 80.8 % (38.7-73.9); Platelet Count 200 T/CUMM (130-400); Red Cell Distribution Width 14.8 % (9.3-17.3); White Blood Count 11.5 T/CUMM (4-12)
[2019-10-14] MEDS ORDERED: ceFAZolin 1,000 MG in SYRINGE 1 EACH IV ONE (06:00)
[2019-10-14] MEDS ORDERED: LIDOCAINE 1%/EPI INJ 20 ML VIAL ONE (06:50)
[2019-10-14] MEDS ORDERED: HEPARIN 5,000 UNIT/1 ML VIAL ONE (06:50)
[2019-10-14] MEDS ORDERED: BUPIVACAINE MPF 0.25% 30 ML VIAL ONE (06:50)
[2019-10-14 07:10] LABS: Hepatitis B Core IgM Quant 0.21 Index; Hepatitis B Surface Ag Quant < 0.10 Index; Hepatitis B Surface Ag Result Negative (Negative); Hepatitis C Virus Ab Quant 0.11 Index; Hepatitis C Virus Ab Result Negative (Negative)
[2019-10-14] MEDS ORDERED: propofoL 200 MG/20 ML VIAL IV ONE (07:50)
[2019-10-14] MEDS ORDERED: MIDAZOLAM 2 MG/2 ML VIAL ONE (07:50)
[2019-10-14] MEDS ORDERED: LIDOCAINE 2% 5 ML VIAL ONE (07:50)
[2019-10-14] MEDS ORDERED: fentaNYL 100 MCG/2 ML VIAL ONE (07:50)
[2019-10-14] MEDS ORDERED: hydrALAZINE 20 MG/1 ML VIAL ONE (07:57)
[2019-10-14] MEDS: INSULIN LISPRO 100 UNIT/ML SUBCUT SCH ×4 (08:43→20:37)
[2019-10-14] MEDS: LINACLOTIDE 145 MCG CAPSULE PO SCH ×2 (08:43→10:58)
[2019-10-14] MEDS: FERROUS GLUCONATE 324 MG TABLET PO SCH ×2 (10:57→21:41)
[2019-10-14] MEDS: NEBIVOLOL 10 MG TABLET PO SCH ×2 (10:58→21:40)
[2019-10-14] MEDS: ISOSORBIDE MONONITRATE 60 MG TABLET PO SCH (10:58)
[2019-10-14] MEDS: PANTOPRAZOLE 40 MG TABLET PO SCH ×2 (10:58→21:41)
[2019-10-14] MEDS: LACTULOSE 20 GM/30 ML UDCUP PO SCH ×2 (10:59→21:42)
[2019-10-14] MEDS ORDERED: HEPARIN 10,000 UNIT/10 ML VIAL IV SCH (15:00)
[2019-10-14] MEDS: levETIRAcetam 500 MG TABLET PO SCH (21:40)
[2019-10-14] MEDS: ROSUVASTATIN 20 MG TABLET PO SCH (21:41)
[2019-10-14] MEDS: MIRTAZAPINE 15 MG TABLET PO SCH (21:41)
[2019-10-14] MEDS: ASPIRIN CHEW 81 MG TABLET PO SCH (21:41)
[2019-10-15 04:05] LABS: Basophils % 0.4 % (0.0-0.8); Eosinophils # 0.2 10*3/uL (0.0-0.87); Eosinophils % 1.7 % (0.00-10.9); Hematocrit 28.5 VOL% (35.7-47.0); Hemoglobin 8.6 GM/DL (12.0-16.0); Immature Granulocytes % 0.4 %; Immature Granulocytes Absolute 0.04 #; Mean Corpuscular HGB Conc 30.2 GM/DL (32-36); Mean Corpuscular Volume 87.4 FL (87-102); Mean Platelet Volume 9.9 FL (9.6-12.0); Monocytes % 11.1 % (1.7-12.7); Neutrophils % 76.4 % (38.7-73.9); Platelet Count 211 T/CUMM (130-400); Red Blood Count 3.26 MC/CUMM (3.8-5.5); Red Cell Distribution Width 14.6 % (9.3-17.3); White Blood Count 10.1 T/CUMM (4-12)
[2019-10-15] MEDS: INSULIN LISPRO 100 UNIT/ML SUBCUT SCH ×4 (08:15→21:20)
[2019-10-15] MEDS: LINACLOTIDE 145 MCG CAPSULE PO SCH (09:14)
[2019-10-15] MEDS: LACTULOSE 20 GM/30 ML UDCUP PO SCH ×2 (09:15→21:20)
[2019-10-15] MEDS: NEBIVOLOL 10 MG TABLET PO SCH ×2 (09:15→21:23)
[2019-10-15] MEDS: FERROUS GLUCONATE 324 MG TABLET PO SCH ×2 (09:15→21:23)
[2019-10-15] MEDS: levETIRAcetam 500 MG TABLET PO SCH ×2 (09:15→21:23)
[2019-10-15] MEDS: ISOSORBIDE MONONITRATE 60 MG TABLET PO SCH (09:15)
[2019-10-15] MEDS: PANTOPRAZOLE 40 MG TABLET PO SCH ×2 (09:16→21:24)
[2019-10-15] MEDS: SODIUM CHLORIDE 0.45% 1,000 ML IV SCH ×3 (11:21→23:30)
[2019-10-15] MEDS: MORPHINE IR 15 MG TABLET PO PRN (16:59)
[2019-10-15] MEDS: ROSUVASTATIN 20 MG TABLET PO SCH (21:23)
[2019-10-15] MEDS: DOXAZOSIN 1 MG TABLET PO SCH (21:23)
[2019-10-15] MEDS: ASPIRIN CHEW 81 MG TABLET PO SCH (21:24)
[2019-10-15] MEDS: MIRTAZAPINE 15 MG TABLET PO SCH (21:24)
[2019-10-15] MEDS: cloNIDine 0.3 MG/24 HR PATCH TRANSDERM SCH (21:50)
[2019-10-15] MEDS: MAGNESIUM HYDROXIDE SUSP 30 ML UDCUP PO PRN (21:50)
[2019-10-15] MEDS: fentaNYL 12 MCG/HR PATCH TRANSDERM SCH (21:51)
[2019-10-16] MEDS: MORPHINE IR 15 MG TABLET PO PRN ×3 (02:31→13:16)
[2019-10-16] MEDS: ONDANSETRON 4 MG/2 ML VIAL IV PRN ×2 (02:45→23:10)
[2019-10-16 07:25] LABS: Basophils % 0.4 % (0.0-0.8); Eosinophils # 0.2 10*3/uL (0.0-0.87); Eosinophils % 1.8 % (0.00-10.9); Hematocrit 27.1 VOL% (35.7-47.0); Hemoglobin 8.5 GM/DL (12.0-16.0); Immature Granulocytes % 0.4 %; Immature Granulocytes Absolute 0.03 #; Lymphocytes # 0.8 10*3/uL (1.4-4.0); Lymphocytes % 9.7 % (21.3-54.2); Mean Corpuscular HGB Conc 31.4 GM/DL (32-36); Mean Platelet Volume 9.5 FL (9.6-12.0); Monocytes % 10.9 % (1.7-12.7); Neutrophils % 76.8 % (38.7-73.9); Platelet Count 169 T/CUMM (130-400); Red Blood Count 3.19 MC/CUMM (3.8-5.5); Red Cell Distribution Width 14.5 % (9.3-17.3); White Blood Count 8.1 T/CUMM (4-12)
[2019-10-16] MEDS: INSULIN LISPRO 100 UNIT/ML SUBCUT SCH ×4 (08:27→22:01)
[2019-10-16] MEDS: LINACLOTIDE 145 MCG CAPSULE PO SCH (08:28)
[2019-10-16] MEDS: LACTULOSE 20 GM/30 ML UDCUP PO SCH ×2 (08:29→21:54)
[2019-10-16 10:16] LABS: Alanine Aminotransferase < 9 U/L (13-56); Alkaline Phosphatase 82 U/L (45-117); Aspartate Amino Transferase 24 U/L (0-37); Bilirubin,Total < 0.39 MG/DL (0.2-1.0); Blood Urea Nitrogen 22 MG/DL (7-18); Calcium 8.8 MG/DL (8.5-10.1); Estimated Glom Filtration Rate 16 ML/MIN; Glucose 238 MG/DL (74-106); Osmolality,Calculated 283.8 MOS/KG (273-304); Total Protein 6.6 G/DL (6.4-8.3)
[2019-10-16] MEDS: MAGNESIUM HYDROXIDE SUSP 30 ML UDCUP PO PRN (13:16)
[2019-10-16] MEDS: FERROUS GLUCONATE 324 MG TABLET PO SCH ×2 (13:17→21:59)
[2019-10-16] MEDS: ISOSORBIDE MONONITRATE 60 MG TABLET PO SCH (13:17)
[2019-10-16] MEDS: DOXAZOSIN 1 MG TABLET PO SCH ×2 (13:17→22:00)
[2019-10-16] MEDS: NEBIVOLOL 10 MG TABLET PO SCH ×2 (13:18→22:00)
[2019-10-16] MEDS: levETIRAcetam 500 MG TABLET PO SCH ×2 (13:18→22:01)
[2019-10-16] MEDS: SODIUM CHLORIDE 0.45% 1,000 ML IV SCH (13:18)
[2019-10-16] MEDS: PANTOPRAZOLE 40 MG TABLET PO SCH ×2 (13:18→21:59)
[2019-10-16] MEDS: MIRTAZAPINE 15 MG TABLET PO SCH (21:59)
[2019-10-16] MEDS: ROSUVASTATIN 20 MG TABLET PO SCH (22:00)
[2019-10-16] MEDS: ASPIRIN CHEW 81 MG TABLET PO SCH (22:01)
[2019-10-17 05:51] LABS: Basophils % 0.4 % (0.0-0.8); Eosinophils # 0.1 10*3/uL (0.0-0.87); Eosinophils % 1.4 % (0.00-10.9); Hematocrit 26.4 VOL% (35.7-47.0); Hemoglobin 8.2 GM/DL (12.0-16.0); Immature Granulocytes % 0.4 %; Immature Granulocytes Absolute 0.04 #; Lymphocytes # 0.8 10*3/uL (1.4-4.0); Lymphocytes % 8.2 % (21.3-54.2); Mean Corpuscular HGB Conc 31.1 GM/DL (32-36); Mean Corpuscular Volume 85.4 FL (87-102); Mean Platelet Volume 9.7 FL (9.6-12.0); Monocytes % 10.5 % (1.7-12.7); Neutrophils % 79.1 % (38.7-73.9); Platelet Count 176 T/CUMM (130-400); Red Blood Count 3.09 MC/CUMM (3.8-5.5); Red Cell Distribution Width 14.4 % (9.3-17.3); White Blood Count 9.1 T/CUMM (4-12)
[2019-10-17] MEDS: SODIUM CHLORIDE 0.45% 1,000 ML IV SCH (06:20)
[2019-10-17 06:41] LABS: Calcium 8.7 MG/DL (8.5-10.1); Osmolality,Calculated 273.2 MOS/KG (273-304)
[2019-10-17] MEDS: LACTULOSE 20 GM/30 ML UDCUP PO SCH ×2 (08:41→20:51)
[2019-10-17] MEDS: LINACLOTIDE 145 MCG CAPSULE PO SCH (08:41)
[2019-10-17] MEDS: INSULIN LISPRO 100 UNIT/ML SUBCUT SCH ×4 (08:41→20:56)
[2019-10-17] MEDS: DOXAZOSIN 1 MG TABLET PO SCH ×2 (09:52→20:55)
[2019-10-17] MEDS: ISOSORBIDE MONONITRATE 60 MG TABLET PO SCH (09:53)
[2019-10-17] MEDS: NEBIVOLOL 10 MG TABLET PO SCH ×2 (09:53→20:55)
[2019-10-17] MEDS: levETIRAcetam 500 MG TABLET PO SCH ×2 (09:54→20:55)
[2019-10-17] MEDS: PANTOPRAZOLE 40 MG TABLET PO SCH ×2 (09:54→20:56)
[2019-10-17] MEDS: FERROUS GLUCONATE 324 MG TABLET PO SCH ×2 (09:54→20:56)
[2019-10-17] MEDS: MIRTAZAPINE 15 MG TABLET PO SCH (20:56)
[2019-10-17] MEDS: ASPIRIN CHEW 81 MG TABLET PO SCH (20:56)
[2019-10-17] MEDS: ROSUVASTATIN 20 MG TABLET PO SCH (20:56)
[2019-10-18] MEDS: LINACLOTIDE 145 MCG CAPSULE PO SCH (08:23)
[2019-10-18] MEDS: LACTULOSE 20 GM/30 ML UDCUP PO SCH ×2 (08:23→21:06)
[2019-10-18] MEDS: INSULIN LISPRO 100 UNIT/ML SUBCUT SCH ×4 (08:24→21:06)
[2019-10-18] MEDS: NEBIVOLOL 10 MG TABLET PO SCH ×2 (09:38→21:05)
[2019-10-18] MEDS: fentaNYL 12 MCG/HR PATCH TRANSDERM SCH (09:38)
[2019-10-18] MEDS: PANTOPRAZOLE 40 MG TABLET PO SCH ×2 (09:38→21:06)
[2019-10-18] MEDS: levETIRAcetam 500 MG TABLET PO SCH ×2 (09:38→21:06)
[2019-10-18] MEDS: DOXAZOSIN 1 MG TABLET PO SCH ×2 (09:38→21:05)
[2019-10-18] MEDS: FERROUS GLUCONATE 324 MG TABLET PO SCH ×2 (09:38→21:06)
[2019-10-18] MEDS: ISOSORBIDE MONONITRATE 60 MG TABLET PO SCH (09:38)
[2019-10-18] MEDS: INSULIN GLARGINE 100 UNIT/ML SUBCUT SCH (09:43)
[2019-10-18] MEDS: MORPHINE IR 15 MG TABLET PO PRN (17:07)
[2019-10-18] MEDS: ONDANSETRON 4 MG/2 ML VIAL IV PRN (17:08)
[2019-10-18] MEDS ORDERED: INSULIN NPH 100 UNIT/ML SUBCUT SCH ×2 (21:00)
[2019-10-18] MEDS: ASPIRIN CHEW 81 MG TABLET PO SCH (21:05)
[2019-10-18] MEDS: ROSUVASTATIN 20 MG TABLET PO SCH (21:05)
[2019-10-18] MEDS: MIRTAZAPINE 15 MG TABLET PO SCH (21:06)
[2019-10-19 05:35] LABS: Basophils % 0.4 % (0.0-0.8); Eosinophils # 0.1 10*3/uL (0.0-0.87); Eosinophils % 1.3 % (0.00-10.9); Hematocrit 27.3 VOL% (35.7-47.0); Hemoglobin 8.4 GM/DL (12.0-16.0); Immature Granulocytes % 0.5 %; Immature Granulocytes Absolute 0.06 #; Lymphocytes # 0.6 10*3/uL (1.4-4.0); Lymphocytes % 5.5 % (21.3-54.2); Mean Corpuscular HGB Conc 30.8 GM/DL (32-36); Mean Platelet Volume 10.1 FL (9.6-12.0); Monocytes % 10.5 % (1.7-12.7); Neutrophils % 81.8 % (38.7-73.9); Platelet Count 179 T/CUMM (130-400); Red Blood Count 3.21 MC/CUMM (3.8-5.5); Red Cell Distribution Width 14.4 % (9.3-17.3); White Blood Count 11.2 T/CUMM (4-12)
[2019-10-19] MEDS: MORPHINE IR 15 MG TABLET PO PRN ×3 (05:56→20:29)
[2019-10-19 06:05] LABS: Calcium 9.1 MG/DL (8.5-10.1); Osmolality,Calculated 270.4 MOS/KG (273-304)
[2019-10-19] MEDS: LINACLOTIDE 145 MCG CAPSULE PO SCH (08:58)
[2019-10-19] MEDS: INSULIN LISPRO 100 UNIT/ML SUBCUT SCH ×4 (08:58→20:25)
[2019-10-19] MEDS ORDERED: INSULIN NPH 100 UNIT/ML SUBCUT SCH ×2 (09:00)
[2019-10-19] MEDS: PANTOPRAZOLE 40 MG TABLET PO SCH ×2 (12:11→20:30)
[2019-10-19] MEDS: levETIRAcetam 500 MG TABLET PO SCH ×2 (12:11→20:31)
[2019-10-19] MEDS: NEBIVOLOL 10 MG TABLET PO SCH ×2 (12:11→20:30)
[2019-10-19] MEDS: DOXAZOSIN 1 MG TABLET PO SCH ×2 (12:11→20:30)
[2019-10-19] MEDS: INSULIN GLARGINE 100 UNIT/ML SUBCUT SCH (12:12)
[2019-10-19] MEDS: FERROUS GLUCONATE 324 MG TABLET PO SCH ×2 (12:12→20:30)
[2019-10-19] MEDS: ISOSORBIDE MONONITRATE 60 MG TABLET PO SCH (12:12)
[2019-10-19] MEDS: LACTULOSE 20 GM/30 ML UDCUP PO SCH ×2 (12:12→20:25)
[2019-10-19] MEDS: MIRTAZAPINE 15 MG TABLET PO SCH (20:30)
[2019-10-19] MEDS: ROSUVASTATIN 20 MG TABLET PO SCH (20:30)
[2019-10-19] MEDS: ASPIRIN CHEW 81 MG TABLET PO SCH (20:42)
[2019-10-19] MEDS ORDERED: MAGNESIUM HYDROXIDE SUSP 30 ML UDCUP PO PRN (21:11)
[2019-10-20 06:04] LABS: Basophils % 0.4 % (0.0-0.8); Eosinophils # 0.1 10*3/uL (0.0-0.87); Eosinophils % 0.7 % (0.00-10.9); Hematocrit 25.1 VOL% (35.7-47.0); Hemoglobin 7.6 GM/DL (12.0-16.0); Immature Granulocytes % 0.6 %; Immature Granulocytes Absolute 0.06 #; Lymphocytes # 0.8 10*3/uL (1.4-4.0); Lymphocytes % 8.2 % (21.3-54.2); Mean Corpuscular HGB Conc 30.3 GM/DL (32-36); Mean Corpuscular Volume 87.2 FL (87-102); Mean Platelet Volume 10.3 FL (9.6-12.0); Monocytes % 10.5 % (1.7-12.7); Neutrophils % 79.6 % (38.7-73.9); Platelet Count 181 T/CUMM (130-400); Red Blood Count 2.88 MC/CUMM (3.8-5.5); Red Cell Distribution Width 14.4 % (9.3-17.3); White Blood Count 9.7 T/CUMM (4-12)
[2019-10-20 06:27] LABS: Alanine Aminotransferase < 6 U/L (13-56); Albumin 1.6 G/DL (3.4-5.0); Alkaline Phosphatase 77 U/L (45-117); Aspartate Amino Transferase 42 U/L (0-37); Blood Urea Nitrogen 22 MG/DL (7-18); Estimated Glom Filtration Rate 11 ML/MIN; Glucose 200 MG/DL (74-106); Total Protein 6.5 G/DL (6.4-8.3)
[2019-10-20] MEDS: INSULIN LISPRO 100 UNIT/ML SUBCUT SCH ×4 (09:11→20:54)
[2019-10-20] MEDS: INSULIN GLARGINE 100 UNIT/ML SUBCUT SCH (09:11)
[2019-10-20] MEDS: levETIRAcetam 500 MG TABLET PO SCH ×2 (09:27→20:52)
[2019-10-20] MEDS: NEBIVOLOL 10 MG TABLET PO SCH ×2 (09:27→20:53)
[2019-10-20] MEDS: PANTOPRAZOLE 40 MG TABLET PO SCH ×2 (09:27→20:56)
[2019-10-20] MEDS: FERROUS GLUCONATE 324 MG TABLET PO SCH ×2 (09:27→20:52)
[2019-10-20] MEDS: DOXAZOSIN 1 MG TABLET PO SCH ×2 (09:27→20:53)
[2019-10-20] MEDS: POLYETHYLENE GLYCOL POWDER 17 GM PACK PO SCH (09:28)
[2019-10-20] MEDS: LINACLOTIDE 145 MCG CAPSULE PO SCH (09:28)
[2019-10-20] MEDS: LACTULOSE 20 GM/30 ML UDCUP PO SCH ×2 (09:28→20:54)
[2019-10-20] MEDS: ISOSORBIDE MONONITRATE 60 MG TABLET PO SCH (09:28)
[2019-10-20] MEDS: MIRTAZAPINE 15 MG TABLET PO SCH (20:53)
[2019-10-20] MEDS: ROSUVASTATIN 20 MG TABLET PO SCH (20:53)
[2019-10-20] MEDS: ASPIRIN CHEW 81 MG TABLET PO SCH (20:53)
[2019-10-20] MEDS: CLOPIDOGREL 75 MG TABLET PO SCH (20:53)
[2019-10-21 05:11] LABS: Basophils # 0.1 10*3/uL (0.0-0.2); Basophils % 0.6 % (0.0-0.8); Eosinophils # 0.1 10*3/uL (0.0-0.87); Eosinophils % 1.6 % (0.00-10.9); Hematocrit 25.6 VOL% (35.7-47.0); Hemoglobin 7.9 GM/DL (12.0-16.0); Immature Granulocytes % 0.4 %; Immature Granulocytes Absolute 0.03 #; Lymphocytes % 11.1 % (21.3-54.2); Mean Corpuscular HGB Conc 30.9 GM/DL (32-36); Mean Corpuscular Volume 86.5 FL (87-102); Mean Platelet Volume 10.2 FL (9.6-12.0); Monocytes % 13.6 % (1.7-12.7); Neutrophils % 72.7 % (38.7-73.9); Platelet Count 196 T/CUMM (130-400); Red Blood Count 2.96 MC/CUMM (3.8-5.5); Red Cell Distribution Width 14.4 % (9.3-17.3); White Blood Count 8.6 T/CUMM (4-12)
[2019-10-21 05:37] LABS: Calcium 9.3 MG/DL (8.5-10.1); Osmolality,Calculated 281.7 MOS/KG (273-304)
[2019-10-21] MEDS: INSULIN LISPRO 100 UNIT/ML SUBCUT SCH ×4 (07:42→21:25)
[2019-10-21] MEDS: NEBIVOLOL 10 MG TABLET PO SCH ×2 (08:13→21:24)
[2019-10-21] MEDS: LACTULOSE 20 GM/30 ML UDCUP PO SCH ×2 (08:15→21:24)
[2019-10-21] MEDS: DOXAZOSIN 1 MG TABLET PO SCH (08:15)
[2019-10-21] MEDS: LINACLOTIDE 145 MCG CAPSULE PO SCH (09:51)
[2019-10-21] MEDS: levETIRAcetam 500 MG TABLET PO SCH ×2 (12:55→21:25)
[2019-10-21] MEDS: INSULIN GLARGINE 100 UNIT/ML SUBCUT SCH (12:55)
[2019-10-21] MEDS: fentaNYL 12 MCG/HR PATCH TRANSDERM SCH (12:56)
[2019-10-21] MEDS: ISOSORBIDE MONONITRATE 60 MG TABLET PO SCH (12:56)
[2019-10-21] MEDS: POLYETHYLENE GLYCOL POWDER 17 GM PACK PO SCH (12:57)
[2019-10-21] MEDS: FERROUS GLUCONATE 324 MG TABLET PO SCH ×2 (13:01→21:24)
[2019-10-21] MEDS: PANTOPRAZOLE 40 MG TABLET PO SCH ×2 (13:02→21:25)
[2019-10-21] MEDS: MORPHINE IR 15 MG TABLET PO PRN (15:35)
[2019-10-21] MEDS ORDERED: MORPHINE 4 MG/1 ML VIAL IV ONE (16:33)
[2019-10-21] MEDS: ROSUVASTATIN 20 MG TABLET PO SCH (21:24)
[2019-10-21] MEDS: ASPIRIN CHEW 81 MG TABLET PO SCH (21:24)
[2019-10-21] MEDS: CLOPIDOGREL 75 MG TABLET PO SCH (21:25)
[2019-10-21] MEDS: MIRTAZAPINE 15 MG TABLET PO SCH (21:25)
[2019-10-22] MEDS: MORPHINE IR 15 MG TABLET PO PRN ×2 (00:33→04:07)
[2019-10-22 05:30] LABS: Basophils % 0.5 % (0.0-0.8); Eosinophils # 0.1 10*3/uL (0.0-0.87); Eosinophils % 1.5 % (0.00-10.9); Hematocrit 25.8 VOL% (35.7-47.0); Hemoglobin 7.9 GM/DL (12.0-16.0); Immature Granulocytes % 0.4 %; Immature Granulocytes Absolute 0.03 #; Lymphocytes # 0.8 10*3/uL (1.4-4.0); Lymphocytes % 9.9 % (21.3-54.2); Mean Corpuscular HGB Conc 30.6 GM/DL (32-36); Mean Corpuscular Volume 87.2 FL (87-102); Mean Platelet Volume 10.1 FL (9.6-12.0); Monocytes % 15.4 % (1.7-12.7); Neutrophils % 72.3 % (38.7-73.9); Platelet Count 216 T/CUMM (130-400); Red Blood Count 2.96 MC/CUMM (3.8-5.5); White Blood Count 8.4 T/CUMM (4-12)
[2019-10-22] MEDS: INSULIN LISPRO 100 UNIT/ML SUBCUT SCH ×4 (08:37→21:19)
[2019-10-22] MEDS: INSULIN GLARGINE 100 UNIT/ML SUBCUT SCH (09:14)
[2019-10-22] MEDS: PANTOPRAZOLE 40 MG TABLET PO SCH ×2 (09:14→21:19)
[2019-10-22] MEDS: ISOSORBIDE MONONITRATE 60 MG TABLET PO SCH (09:14)
[2019-10-22] MEDS: levETIRAcetam 500 MG TABLET PO SCH ×2 (09:14→21:19)
[2019-10-22] MEDS: FERROUS GLUCONATE 324 MG TABLET PO SCH ×2 (09:14→21:19)
[2019-10-22] MEDS: NEBIVOLOL 10 MG TABLET PO SCH ×2 (09:14→21:19)
[2019-10-22] MEDS: LINACLOTIDE 145 MCG CAPSULE PO SCH (09:14)
[2019-10-22] MEDS: LACTULOSE 20 GM/30 ML UDCUP PO SCH ×2 (09:15→21:40)
[2019-10-22] MEDS: POLYETHYLENE GLYCOL POWDER 17 GM PACK PO SCH (09:15)
[2019-10-22] MEDS: cloNIDine 0.3 MG/24 HR PATCH TRANSDERM SCH (09:39)
[2019-10-22] MEDS: ROSUVASTATIN 20 MG TABLET PO SCH (21:19)
[2019-10-22] MEDS: CLOPIDOGREL 75 MG TABLET PO SCH (21:19)
[2019-10-22] MEDS: ASPIRIN CHEW 81 MG TABLET PO SCH (21:19)
[2019-10-23 05:52] LABS: Basophils # 0.1 10*3/uL (0.0-0.2); Basophils % 0.6 % (0.0-0.8); Eosinophils # 0.2 10*3/uL (0.0-0.87); Eosinophils % 1.8 % (0.00-10.9); Hematocrit 27.2 VOL% (35.7-47.0); Hemoglobin 8.1 GM/DL (12.0-16.0); Immature Granulocytes % 0.5 %; Immature Granulocytes Absolute 0.04 #; Lymphocytes # 0.9 10*3/uL (1.4-4.0); Lymphocytes % 10.3 % (21.3-54.2); Mean Corpuscular HGB Conc 29.8 GM/DL (32-36); Mean Corpuscular Volume 87.5 FL (87-102); Mean Platelet Volume 9.6 FL (9.6-12.0); Monocytes % 14.4 % (1.7-12.7); Neutrophils % 72.4 % (38.7-73.9); Platelet Count 213 T/CUMM (130-400); Red Blood Count 3.11 MC/CUMM (3.8-5.5); Red Cell Distribution Width 13.8 % (9.3-17.3); White Blood Count 8.3 T/CUMM (4-12)
[2019-10-23 06:17] LABS: Calcium 9.7 MG/DL (8.5-10.1); Osmolality,Calculated 275.1 MOS/KG (273-304)
[2019-10-23] MEDS: INSULIN LISPRO 100 UNIT/ML SUBCUT SCH ×2 (07:58→13:20)
[2019-10-23] MEDS: ISOSORBIDE MONONITRATE 60 MG TABLET PO SCH (13:15)
[2019-10-23] MEDS: FERROUS GLUCONATE 324 MG TABLET PO SCH (13:15)
[2019-10-23] MEDS: NEBIVOLOL 10 MG TABLET PO SCH (13:15)
[2019-10-23] MEDS: DOXAZOSIN 1 MG TABLET PO SCH (13:15)
[2019-10-23] MEDS: levETIRAcetam 500 MG TABLET PO SCH (13:15)
[2019-10-23] MEDS: PANTOPRAZOLE 40 MG TABLET PO SCH (13:16)
[2019-10-23] MEDS: LACTULOSE 20 GM/30 ML UDCUP PO SCH (13:16)
[2019-10-23] MEDS: LINACLOTIDE 145 MCG CAPSULE PO SCH (13:16)
[2019-10-23] MEDS: POLYETHYLENE GLYCOL POWDER 17 GM PACK PO SCH (13:16)
[2019-10-23] MEDS: INSULIN GLARGINE 100 UNIT/ML SUBCUT SCH (13:16)
[2019-10-23 13:23] VITALS: BP 169/73
== END 2019-10-23 15:01 | disposition home health service (06) | DRG 673 ==
LOC: N.EDINP 12:49 → N.ED 12:49 → SUATTDRO 14:46 → N.TELES 16:20 → SUATTDRO 10-13 14:44
PROVIDERS: ADMIT Internal Medicine; ATTEND Internal Medicine

== ENCOUNTER 2019-11-04 15:28 | Inpatient (IN) ==
[2019-11-04] MEDS ORDERED: ONDANSETRON 4 MG/2 ML VIAL IV STA (18:36)
[2019-11-04 19:02] LABS: Basophils # 0.1 10*3/uL (0.0-0.2); Basophils % 0.7 % (0.0-0.8); Eosinophils # 0.1 10*3/uL (0.0-0.87); Eosinophils % 1.6 % (0.00-10.9); Hematocrit 24.3 VOL% (35.7-47.0); Hemoglobin 7.6 GM/DL (12.0-16.0); Immature Granulocytes % 0.5 %; Immature Granulocytes Absolute 0.04 #; Lymphocytes # 1.1 10*3/uL (1.4-4.0); Lymphocytes % 12.4 % (21.3-54.2); Mean Corpuscular HGB Conc 31.3 GM/DL (32-36); Mean Corpuscular Volume 85.9 FL (87-102); Mean Platelet Volume 9.5 FL (9.6-12.0); Monocytes % 11.4 % (1.7-12.7); Neutrophils % 73.4 % (38.7-73.9); Platelet Count 260 T/CUMM (130-400); Red Blood Count 2.83 MC/CUMM (3.8-5.5); Red Cell Distribution Width 13.7 % (9.3-17.3); White Blood Count 8.8 T/CUMM (4-12)
[2019-11-04 19:14] LABS: PT Patient Result 11.1 SECS (9.8-11.9)
[2019-11-04 19:18] LABS: Bacteria,Urine Many /HPF (Few); Bilirubin,Urine Negative (Negative); Blood, Urine Small mg/dL (Negative); Glucose,Urine (UA) Negative (Negative); Ketones,Urine Negative (Negative); Nitrite,Urine Negative (Negative); Protein,Urine 100 MG/DL; Urine Appearance CLOUDY (Clear); Urine Color Yellow (Yellow); Urine Specific Gravity 1.013 (1.001-1.035); Urine Urobilinogen < 2.0 EU/DL (0.2-1.0); WBC,Urine 3399 /HPF (0-6)
[2019-11-04] MEDS ORDERED: cefTRIAXone 1,000 MG in SODIUM CHLORIDE 0.9% 100 ML IV STA (19:20)
[2019-11-04 19:26] LABS: Alanine Aminotransferase < 6 U/L (13-56); Albumin 2.3 G/DL (3.4-5.0); Alkaline Phosphatase 103 U/L (45-117); Aspartate Amino Transferase 19 U/L (0-37); Bilirubin,Total < 0.39 MG/DL (0.2-1.0); Blood Urea Nitrogen 10 MG/DL (7-18); Calcium 8.9 MG/DL (8.5-10.1); Estimated Glom Filtration Rate 14 ML/MIN; Glucose 243 MG/DL (74-106); Osmolality,Calculated 276.1 MOS/KG (273-304); Total Protein 6.8 G/DL (6.4-8.3)
[2019-11-04] MEDS ORDERED: LABETALOL 20 MG/4 ML SYRINGE IV STA (19:35)
[2019-11-04] MEDS ORDERED: LABETALOL 20 MG/4 ML SYRINGE IV ONE (19:35)
[2019-11-04] MEDS ORDERED: DEXTROSE 50% 25 GM/50 ML VIAL IV PRN (20:54)
[2019-11-04] MEDS ORDERED: hydrALAZINE 20 MG/1 ML VIAL IV PRN (20:54)
[2019-11-04] MEDS ORDERED: MORPHINE 4 MG/1 ML VIAL IV PRN (20:54)
[2019-11-04] MEDS ORDERED: ONDANSETRON 4 MG/2 ML VIAL IV PRN (20:54)
[2019-11-04] MEDS ORDERED: GLUCAGON 1 MG VIAL IM PRN (20:54)
[2019-11-04] MEDS ORDERED: SODIUM CHLORIDE 0.9% 1,000 ML IV PRN (21:15)
[2019-11-04] MEDS ORDERED: cefTRIAXone 1,000 MG in SODIUM CHLORIDE 0.9% 100 ML IV SCH (21:30)
[2019-11-04] MEDS ORDERED: fentaNYL 12 MCG/HR PATCH TRANSDERM SCH (21:30)
[2019-11-04] MEDS: PANTOPRAZOLE 40 MG VIAL IV SCH (22:05)
[2019-11-04] MEDS: INSULIN LISPRO 100 UNIT/ML SUBCUT SCH (23:54)
[2019-11-05 05:30] LABS: Basophils # 0.1 10*3/uL (0.0-0.2); Basophils % 0.7 % (0.0-0.8); Eosinophils # 0.1 10*3/uL (0.0-0.87); Eosinophils % 1.6 % (0.00-10.9); Hematocrit 22.3 VOL% (35.7-47.0); Hemoglobin 6.9 GM/DL (12.0-16.0); Immature Granulocytes % 0.2 %; Immature Granulocytes Absolute 0.02 #; Lymphocytes % 12.9 % (21.3-54.2); Mean Corpuscular HGB Conc 30.9 GM/DL (32-36); Mean Corpuscular Volume 86.1 FL (87-102); Mean Platelet Volume 10.1 FL (9.6-12.0); Monocytes % 11.9 % (1.7-12.7); Neutrophils % 72.7 % (38.7-73.9); Platelet Count 242 T/CUMM (130-400); Red Blood Count 2.59 MC/CUMM (3.8-5.5); Red Cell Distribution Width 13.9 % (9.3-17.3)
[2019-11-05 05:46] LABS: Alanine Aminotransferase < 6 U/L (13-56); Albumin 1.9 G/DL (3.4-5.0); Alkaline Phosphatase 89 U/L (45-117); Aspartate Amino Transferase 16 U/L (0-37); Bilirubin,Total < 0.39 MG/DL (0.2-1.0); Blood Urea Nitrogen 10 MG/DL (7-18); Calcium 8.7 MG/DL (8.5-10.1); Estimated Glom Filtration Rate 13 ML/MIN; Glucose 218 MG/DL (74-106); Osmolality,Calculated 278.8 MOS/KG (273-304); Total Protein 6.3 G/DL (6.4-8.3)
[2019-11-05] MEDS ORDERED: POTASSIUM CHLORIDE RIDER 10 MEQ in PREMIX 1 EACH IV PRN (06:37)
[2019-11-05] MEDS: POTASSIUM CHLORIDE RIDER 10 MEQ in PREMIX 1 EACH IV SCH ×4 (07:06→11:54)
[2019-11-05] MEDS: hydrALAZINE 20 MG/1 ML VIAL IV PRN (07:40)
[2019-11-05] MEDS: INSULIN LISPRO 100 UNIT/ML SUBCUT SCH ×4 (07:40→21:51)
[2019-11-05] MEDS ORDERED: FLUCONAZOLE 200 MG TABLET PO ONE (08:46)
[2019-11-05] MEDS: INSULIN GLARGINE 100 UNIT/ML SUBCUT SCH (09:00)
[2019-11-05] MEDS ORDERED: propofoL 200 MG/20 ML VIAL IV ONE (09:00)
[2019-11-05] MEDS ORDERED: LIDOCAINE 2% 5 ML VIAL ONE (09:00)
[2019-11-05] MEDS: PANTOPRAZOLE 40 MG VIAL IV SCH ×2 (09:55→21:34)
[2019-11-05] MEDS ORDERED: DOCUSATE SODIUM 100 MG CAPSULE PO ONE (15:24)
[2019-11-05] MEDS ORDERED: NITROGLYCERIN SL 0.4 MG TABLET SL ONE (17:45)
[2019-11-05] MEDS: NEBIVOLOL 10 MG TABLET PO SCH ×2 (18:19→21:33)
[2019-11-05 18:35] LABS: Calcium 8.7 MG/DL (8.5-10.1); Osmolality,Calculated 270.8 MOS/KG (273-304)
[2019-11-05 19:48] LABS: Troponin I 0.034 NG/ML (0.00-0.045)
[2019-11-05] MEDS ORDERED: cefTRIAXone 1,000 MG in SYRINGE 1 EACH IV SCH (21:00)
[2019-11-06] MEDS: hydrALAZINE 20 MG/1 ML VIAL IV PRN (01:56)
[2019-11-06 05:50] LABS: Basophils # 0.1 10*3/uL (0.0-0.2); Basophils % 0.6 % (0.0-0.8); Eosinophils # 0.2 10*3/uL (0.0-0.87); Hematocrit 25.8 VOL% (35.7-47.0); Immature Granulocytes % 0.3 %; Immature Granulocytes Absolute 0.03 #; Lymphocytes % 11.7 % (21.3-54.2); Mean Corpuscular Volume 88.1 FL (87-102); Mean Platelet Volume 9.8 FL (9.6-12.0); Monocytes % 11.5 % (1.7-12.7); Neutrophils % 73.9 % (38.7-73.9); Platelet Count 217 T/CUMM (130-400); Red Blood Count 2.93 MC/CUMM (3.8-5.5); Red Cell Distribution Width 13.9 % (9.3-17.3); White Blood Count 8.6 T/CUMM (4-12)
[2019-11-06 07:18] LABS: Alanine Aminotransferase < 9 U/L (13-56); Albumin 1.9 G/DL (3.4-5.0); Alkaline Phosphatase 84 U/L (45-117); Aspartate Amino Transferase 19 U/L (0-37); Bilirubin,Total 0.59 MG/DL (0.2-1.0); Blood Urea Nitrogen 7 MG/DL (7-18); Calcium 8.7 MG/DL (8.5-10.1); Estimated Glom Filtration Rate 19 ML/MIN; Glucose 137 MG/DL (74-106); Total Protein 6.3 G/DL (6.4-8.3)
[2019-11-06] MEDS ORDERED: SUCRALFATE 1 GM/10 ML UDCUP PO PRN (07:33)
[2019-11-06] MEDS ORDERED: cloNIDine 0.1 MG TABLET PO PRN (07:33)
[2019-11-06] MEDS ORDERED: NITROGLYCERIN SL 0.4 MG TABLET SL PRN (07:33)
[2019-11-06] MEDS ORDERED: LINACLOTIDE 145 MCG CAPSULE PO SCH (08:00)
[2019-11-06] MEDS ORDERED: FERROUS GLUCONATE PO SCH (09:00)
[2019-11-06] MEDS ORDERED: DOXAZOSIN 1 MG TABLET PO SCH (09:00)
[2019-11-06] MEDS ORDERED: FLUCONAZOLE 100 MG TABLET PO SCH (09:00)
[2019-11-06] MEDS ORDERED: NEBIVOLOL 20 MG PO SCH (09:00)
[2019-11-06] MEDS ORDERED: ISOSORBIDE MONONITRATE 60 MG TABLET PO SCH (09:00)
[2019-11-06] MEDS ORDERED: POLYETHYLENE GLYCOL POWDER 17 GM PACK PO SCH (09:00)
[2019-11-06] MEDS ORDERED: MAGNESIUM HYDROXIDE SUSP 30 ML UDCUP PO PRN (09:18)
[2019-11-06] MEDS: INSULIN LISPRO 100 UNIT/ML SUBCUT SCH ×2 (09:26→15:42)
[2019-11-06] MEDS: NEBIVOLOL 10 MG TABLET PO SCH (09:37)
[2019-11-06] MEDS: PANTOPRAZOLE 40 MG VIAL IV SCH (09:44)
[2019-11-06] MEDS: INSULIN GLARGINE 100 UNIT/ML SUBCUT SCH (11:42)
[2019-11-06 11:53] VITALS: BP 205/90
[2019-11-06] MEDS ORDERED: SODIUM PHOSPHATE ENEMA 133 ML BOTTLE RECTAL ONE (15:01)
[2019-11-06] MEDS ORDERED: ASPIRIN CHEW 81 MG TABLET PO SCH (21:00)
[2019-11-06] MEDS ORDERED: CLOPIDOGREL 75 MG TABLET PO SCH (21:00)
[2019-11-08] MEDS ORDERED: cloNIDine 0.3 MG/24 HR PATCH TRANSDERM SCH (09:00)
== END 2019-11-06 17:59 | disposition home health service (06) | DRG 368 ==
LOC: N.ED 15:28 → OBSVTOIN 20:00 → N.EDINP 20:00 → INTOOBSV 20:00 → N.TELES 22:39
PROVIDERS: ADMIT Family Medicine; ATTEND Family Medicine